=== PATIENT | female | born 1950 | race Caucasian/White ===

== ENCOUNTER 2020-02-27 17:29 | Emergency (ER) | payer MEDICARE, SELFPAY ==
[2020-02-27 17:57] VITALS: BP 164/103; PULSE 105; RESP 18; TEMP 37.1; O2SAT 100; BMI 27.4
--- NOTE | 2020-02-27 18:16 | XR_ITS ---
EXAMINATION: 1. RADIOGRAPHS LEFT HIP 2. RADIOGRAPHS LEFT FEMUR 3. RADIOGRAPHS LEFT TIBIA/FIBULA CLINICAL INFORMATION: Fall COMPARISON: None TECHNIQUE: 2 views of the left hip (including frontal pelvis), 2 views of the left femur and 2 views of the left tibia/fibular were obtained. FINDINGS: Pelvic ring is intact. Sacroiliac joints are symmetric. Vascular calcifications of the pelvis are noted. Unremarkable limited imaging of the right hip. No fracture of the left femur. Left femoral head is well-seated within the acetabulum. There is mild narrowing of the left femoral acetabular joint space with a small osteophyte along the superolateral acetabular margin. There are moderate degenerative changes of the left knee. A tiny suprapatellar joint effusion is suspected. There are are prominent tricompartmental osteophytes in addition to mild chondrocalcinosis. Cannot exclude a subtle nondisplaced fracture of the lateral tibial plateau although I suspect this cortical irregularity likely represents degenerative changes. The left ankle is grossly unremarkable without gross left ankle joint effusion. XR/XR tibia fibula LT 2V IMPRESSION: 1. Subtle cortical irregularity along the lateral tibial plateau. I suspect this represents degenerative changes, however, a subtle nondisplaced fracture is not excluded. Correlation with point tenderness recommended. If clinical concern for fracture, dedicated knee radiographs can be obtained. 2. Mild degenerative changes of the left hip without fracture or dislocation.
--- NOTE | 2020-02-27 18:16 | XR_ITS ---
EXAMINATION: 1. RADIOGRAPHS LEFT HIP 2. RADIOGRAPHS LEFT FEMUR 3. RADIOGRAPHS LEFT TIBIA/FIBULA CLINICAL INFORMATION: Fall COMPARISON: None TECHNIQUE: 2 views of the left hip (including frontal pelvis), 2 views of the left femur and 2 views of the left tibia/fibular were obtained. FINDINGS: Pelvic ring is intact. Sacroiliac joints are symmetric. Vascular calcifications of the pelvis are noted. Unremarkable limited imaging of the right hip. No fracture of the left femur. Left femoral head is well-seated within the acetabulum. There is mild narrowing of the left femoral acetabular joint space with a small osteophyte along the superolateral acetabular margin. There are moderate degenerative changes of the left knee. A tiny suprapatellar joint effusion is suspected. There are are prominent tricompartmental osteophytes in addition to mild chondrocalcinosis. Cannot exclude a subtle nondisplaced fracture of the lateral tibial plateau although I suspect this cortical irregularity likely represents degenerative changes. The left ankle is grossly unremarkable without gross left ankle joint effusion. XR/XR hip LT w PEL1V IMPRESSION: 1. Subtle cortical irregularity along the lateral tibial plateau. I suspect this represents degenerative changes, however, a subtle nondisplaced fracture is not excluded. Correlation with point tenderness recommended. If clinical concern for fracture, dedicated knee radiographs can be obtained. 2. Mild degenerative changes of the left hip without fracture or dislocation.
[2020-02-27] MEDS: Ibuprofen 800 MG TABLET PO (20:18)
--- NOTE | 2020-02-27 20:19 | PC.NURSE ---
ONLY 1 DOSE OF 800 MG IBUPROFEN GIVEN DUPILATION ORDER
[2020-02-27 20:44] VITALS: BP 154/69; PULSE 99; RESP 18; TEMP 36.9; O2SAT 99
--- NOTE | 2020-02-27 20:51 | XR_ITS ---
EXAMINATION: XR KNEE, LEFT CLINICAL INFORMATION: Question fracture seen on previous radiographs. COMPARISON: Femur and tib-fib films earlier today. TECHNIQUE: Four views of the left knee. FINDINGS: Degenerative changes are noted in all 3 compartments with narrowing of the medial compartment with tibial and femoral condyle osteophytes. Chondrocalcinosis is present with calcification in both menisci. Laterally, the area of cortical irregularity is seen but this appears to represent osteophytes and subchondral cyst rather than a fracture. The patellofemoral compartment is markedly narrowed and there are osteophytes. No joint effusion is seen. XR/XR knee LT 3V IMPRESSION: Tricompartmental degenerative changes. No fracture seen.
--- NOTE | 2020-02-27 21:47 | ED.LOWEXIN ---
HPI - Extremity Injury (Lower) General Chief Complaint: Extremity Injury, Lower Stated Complaint: leg pain Time Seen by Provider: 02/27/20 20:04 Source: patient Mode of arrival: ambulatory Limitations: no limitations History of Present Illness HPI Narrative: Patient presents to left hip pain for the past 3 weeks. Patient states she fell 3 days ago on left hip and has not been evaluated by ever since. Patient states pain is worse on ambulation. Patient denies hitting head or loss of consciousness. Related Data Previous Rx's Medication Instructions Recorded naproxen 500 mg PO BID PRN #20 tab 02/27/20 Allergies Allergy/AdvReac Type Severity Reaction Status Date / Time No Known Allergies Allergy Verified 02/27/20 18:06 Review of Systems Review of Systems: Yes all other systems are reviewed and are negative Constitutional: Constitutional: Reports as per HPI and Reports no additional constitutional complaints Eyes: Eyes: Reports as per HPI and Reports no additional eye complaints ENT: Reports system reviewed and no additional complaints, except as documented and Reports as per HPI Cardiovascular: Cardiovascular: Reports as per HPI and Reports no additional cardiovascular complaints Respiratory: Respiratory: Reports as per HPI and Reports no additional respiratory complaints Gastrointestinal: Gastrointestinal: Reports as per HPI and Reports no additional gastrointestinal complaints Musculoskeletal: Musculoskeletal: Reports no additional musculoskeletal complaints and Reports as per HPI Comments: positive left hip and posterior thigh pain after falling 2 weeks ago. Neurologic: Reports system reviewed and no additional complaints, except as documented and Reports as per HPI Psychiatric: Psychiatric: Reports no additional psychiatric complaints and Reports as per HPI [facility] Past Medical History Medical History (Updated 02/27/20 @ 21:52 by RASHID Hearn) No known health problems Social History Social History Alcohol intake: current Alcohol intake frequency: 0-2 drinks per day Alcohol type: beer and wine Smoked in Last 30 Days: No Use of substances other than those prescribed or required for medical reasons: No Any prior treatment program specific to substance use: No Advance Directives: No Advance Directives Information Provided: Yes Physical Exam Vital Signs: Vital Signs: Vital Signs Temp Pulse Resp BP Pulse Ox 02/27/20 20:44 98.4 F 99 18 154/69 H 99 02/27/20 17:57 98.7 F 105 H 18 164/103 H 100 Body Mass Index 27.4 Const: General: cooperative, healthy appearing, comfortable, no acute distress and well developed Orientation/consciousness: patient oriented x3 HENMT: Head: Yes normal to inspection, Yes No palpable skull fracture present, Yes atraumatic, No abrasion, No Riggins's sign, No contusion, No laceration, No occipital foramen tenderness, No palpable skull fracture, No raccoon eyes, No scalp tenderness and No Temporal artery tenderness present Eyes: General: appearance normal, both eyes and all related structures Visual Vigil: normal visual vigil by confrontation Neck: Neck: Yes normal visual inspection, Yes full ROM, Yes no lymphadenopathy, Yes no meningeal signs, Yes trachea midline, No positive Brudzinski's sign, No positive Kernig's sign and No tender Chest: Chest palpation & inspection: normal inspection of the chest, normal palpation of entire chest wall and no localized rib tenderness Resp: Effort & Inspection: normal respiratory effort and able to speak in complete sentences GI: Inspection: Yes normal to inspection and No abdominal wall ecchymosis Palpation (GI): Soft to palpation, not firm, nontender, no guarding and not rigid : General: No CVA tenderness and Yes no CVA tenderness Back/Spine/Pelvis: Back: no CVA tenderness, No CVA tenderness and No back tenderness Skin: General skin exam: no rashes or lesions noted Neuro: General: patient oriented x3, gait normal, no meningeal signs and CN's II-XI intact bilaterally Cranial nerves: Yes CN's II-XII intact bilaterally Extrem: Other: Positive for left hip tenderness on palpation. Negative for any internal/external rotation of left lower extremity. Negative for any anterior tenderness, redness, or swelling of the thigh and lower extremity. Mild left posterior thigh tenderness on palpation. Right lower extremity normal. motor, neuro, vascular exam of all extremities are intact Course Course Course Narrative: Patient will be sent for hip femur knee and leg x-ray to rule out any fractures. Reevaluation(s) Reevaluation #1: All images came back negative and Patient feels better after receiving Motrin. physical exam does not indicate fracture, DVT, cellulitis, or compartment syndrome. Xray shows arthritis. Time: 21:50 MDM - Extremity Injury (Lower) MDM Narrative Medical decision making narrative: hip contusion Discharge Plan Discharge Clinical Impression: Contusion of left hip region Patient Disposition: Home, Self-Care Instructions: Hip Contusion (ED), Arthritis (ED) Additional Instructions: return to ED immediately for swelling of lower extremity, redness, bluish discoloration, fever, chills, chest pain, inability to walk, shortness of breath, or any other concerning symptoms. Prescriptions: New naproxen 500 mg tablet 500 mg PO BID PRN (Reason: pain) Qty: 20 RF: 0 Interventions: ED Discharge Assessment Last Done: 02/27/20 22:00 Discharge Date/Time: 02/27/20 22:03 Print Language: [place]
--- NOTE | 2020-02-27 22:01 | PC.NURSE ---
PT REQUESTED CRUTCHES TO AMBULATE TRIAL PT WITH CRUTCHES AND PT WAS UNABLE TO HANDLE CRUTCHES. PT AMBULATORY WITH STEADY GAIT NO CRUTCHES NEEDED.
== END 2020-02-27 22:03 | disposition home or self-care (01) ==
PROVIDERS: Emergency Provider Internal Medicine
DX: S70.02XA Contusion of left hip, initial encounter (principal); M25.552 Pain in left hip; M25.562 Pain in left knee; W01.0XXA Fall on same level from slipping, tripping and stumbling without subsequent striking against object, initial encounter; Y93.9 Activity, unspecified; Y92.9 Unspecified place or not applicable; Y99.9 Unspecified external cause status
CPT/HCPCS: 73502; 73552; 73562; 73590; 99283; 99284

== ENCOUNTER 2020-03-03 18:00 | Inpatient (IN) | payer MEDICARE, SELFPAY ==
--- NOTE | 2020-03-03 19:49 | ED.LOWEXIN ---
HPI - Extremity Injury (Lower) General Chief Complaint: Extremity Injury, Lower Stated Complaint: Leg pain Time Seen by Provider: 03/03/20 19:49 Related Data Previous Rx's Medication Instructions Recorded naproxen 500 mg PO BID PRN #20 tab 02/27/20 cefuroxime axetil 500 mg PO Q12H #24 tab 03/06/20 folic acid 1 mg PO DAILY #30 tab 03/06/20 thiamine HCl (vitamin B1) 100 mg PO DAILY #30 tab 03/06/20 Allergies Allergy/AdvReac Type Severity Reaction Status Date / Time No Known Allergies Allergy Verified 02/27/20 18:06 [facility] Past Medical History Medical History (Updated 03/05/20 @ 15:13 by Johnny Carlisle MD) Alcohol abuse No known health problems Social History Social History (Updated 03/04/20 @ 13:37 by Coretta Diego NP) Household Members: Family Housing: House Do you presently have visiting nurse or other home services: No Alcohol intake: former Smoking Status: Smoker, status unknown Smoked in Last 30 Days: No Use of substances other than those prescribed or required for medical reasons: No Currently Displaying Signs/Symptoms of Drug Intoxication Withdrawal: No Have you been hit, kicked, punched, or otherwise hurt by someone within the past year? If so, by whom?: No Do you feel safe in your current relationship?: No Is there a partner from a previous relationship who is making you feel unsafe now?: No Are you made to feel afraid or neglected: No Advance Directives: No Advance Directives Information Provided: Yes Do you have thoughts of harming others: None Do you have a plan to hurt others: No Plan Recently lost weight without trying: No service: No Physical Exam Vital Signs: Vital Signs: Last Vital Signs Temp 98.7 F 03/06/20 10:59 Pulse 95 03/06/20 10:59 Resp 18 03/06/20 10:59 BP 115/61 03/06/20 10:59 Pulse Ox 97 03/06/20 10:59 Body Mass Index 29.2 MDM - Extremity Injury (Lower) Lab Data Result diagrams: 03/06/20 05:26 03/06/20 05:26 Labs: Lab Results 03/03/20 03/03/20 03/03/20 Range/Units 20:39 20:39 20:39 WBC 7.1 (4.8-10.8) X10*3/uL RBC 2.99 L (4.20-5.50) X10*6/uL Hgb 9.9 L (12.0-16.0) g/dl Hct 29.5 L (37-47) % MCV 98.7 H (80-98) fL MCH 33.1 H (27.0-33.0) pg MCHC 33.6 (31.0-35.0) g/dl RDW 13.4 (11.0-16.0) % Plt Count 169 (160-400) X10*3/uL MPV 9.3 L (9.4-12.3) fL Immature Gran % (Auto) 0.6 H (0.0-0.4) % Neut % (Auto) 78.3 H (45-73) % Lymph % (Auto) 11.2 L (20-40) % [place] % (Auto) 9.5 (2-11) % Eos % (Auto) 0.3 (0-4) % Baso % (Auto) 0.1 (0-2) % Lymph # (Auto) 0.8 L (1.2-4.9) X10*3/uL [place] # (Auto) 0.7 (0.1-1.2) X10*3/uL Eos # (Auto) 0.0 (0.0-0.4) X10*3/uL Baso # (Auto) 0.0 (0.0-0.2) X10*3/uL Abs Immat Gran (auto) 0.04 H (0.00-0.03) X10*3/uL Absolute Neuts (auto) 5.5 (2.0-8.3) X10*3/uL Absolute Nucleated RBC 0.000 (0.0-0.012) X10*3/uL Nucleated RBC % (auto) 0.0 (0.0-0.2) /100WBC Hold Blue Top Sodium 133 L (135-145) mmol/L Potassium 3.6 (3.3-5.1) mmol/l Chloride 94 L (96-108) mmol/L Carbon Dioxide 26 (22-29) mmol/L Anion Gap 17 (12-20) BUN 22 H (9-16) mg/dL Creatinine 0.79 (0.5-1.4) mg/dL Estim Creat Clear Calc 66.9 Estimated GFR > 60 POC Glucose (60-115) mg/dL Random Glucose 115 (60-115) mg/dL Lactic Acid (0.5-2.0) mmol/L Calcium 8.9 (8.4-10.2) mg/dL Total Bilirubin 3.7 H (0.0-1.0) mg/dL Direct Bilirubin 2.9 H (0.0-0.5) mg/dL AST 42 H (5-31) U/L ALT 19 (0-31) U/L Alkaline Phosphatase 274 H (39-117) U/L Ammonia (13-55) umol/L Troponin I High Sens (<3.5-17.0) ng/L Total Protein 7.7 (6.5-8.0) g/dL Albumin 3.7 (3.5-5.0) g/dL Urine Color Urine Appearance Urine pH (5.0-8.0) Ur Specific [place] (1.005-1.025) Urine Protein (NEG-TRACE) MG/DL Urine Glucose (UA) (NEG) MG/DL Urine Ketones (NEG) MG/DL Urine Blood (NEG) Urine Nitrite (NEG) Ur Leukocyte Esterase (NEG) Urine RBC (0) /HPF Urine WBC (0-4) /HPF Ur Squamous Epith Cells /LPF Urine Bacteria /LPF Urine Opiates Screen (Not Detect) Ur Barbiturates Screen (Not Detect) Ur Phencyclidine Scrn (Not Detect) Ur Amphetamines Screen (Not Detect) U Benzodiazepines Scrn (Not Detect) Urine Cocaine Screen (Not Detect) U Marijuana (THC) Screen (Not Detect) Ethyl Alcohol < 10 mg/dL 03/03/20 03/03/20 03/03/20 Range/Units 20:39 20:39 21:05 WBC (4.8-10.8) X10*3/uL RBC (4.20-5.50) X10*6/uL Hgb (12.0-16.0) g/dl Hct (37-47) % MCV (80-98) fL MCH (27.0-33.0) pg MCHC (31.0-35.0) g/dl RDW (11.0-16.0) % Plt Count (160-400) X10*3/uL MPV (9.4-12.3) fL Immature Gran % (Auto) (0.0-0.4) % Neut % (Auto) (45-73) % Lymph % (Auto) (20-40) % [place] % (Auto) (2-11) % Eos % (Auto) (0-4) % Baso % (Auto) (0-2) % Lymph # (Auto) (1.2-4.9) X10*3/uL [place] # (Auto) (0.1-1.2) X10*3/uL Eos # (Auto) (0.0-0.4) X10*3/uL Baso # (Auto) (0.0-0.2) X10*3/uL Abs Immat Gran (auto) (0.00-0.03) X10*3/uL Absolute Neuts (auto) (2.0-8.3) X10*3/uL Absolute Nucleated RBC (0.0-0.012) X10*3/uL Nucleated RBC % (auto) (0.0-0.2) /100WBC Hold Blue Top SEE NOTE Sodium (135-145) mmol/L Potassium (3.3-5.1) mmol/l Chloride (96-108) mmol/L Carbon Dioxide (22-29) mmol/L Anion Gap (12-20) BUN (9-16) mg/dL Creatinine (0.5-1.4) mg/dL Estim Creat Clear Calc Estimated GFR POC Glucose 112 (60-115) mg/dL Random Glucose (60-115) mg/dL Lactic Acid (0.5-2.0) mmol/L Calcium (8.4-10.2) mg/dL Total Bilirubin (0.0-1.0) mg/dL Direct Bilirubin (0.0-0.5) mg/dL AST (5-31) U/L ALT (0-31) U/L Alkaline Phosphatase (39-117) U/L Ammonia (13-55) umol/L Troponin I High Sens < 3.5 (<3.5-17.0) ng/L Total Protein (6.5-8.0) g/dL Albumin (3.5-5.0) g/dL Urine Color Urine Appearance Urine pH (5.0-8.0) Ur Specific [place] (1.005-1.025) Urine Protein (NEG-TRACE) MG/DL Urine Glucose (UA) (NEG) MG/DL Urine Ketones (NEG) MG/DL Urine Blood (NEG) Urine Nitrite (NEG) Ur Leukocyte Esterase (NEG) Urine RBC (0) /HPF Urine WBC (0-4) /HPF Ur Squamous Epith Cells /LPF Urine Bacteria /LPF Urine Opiates Screen (Not Detect) Ur Barbiturates Screen (Not Detect) Ur Phencyclidine Scrn (Not Detect) Ur Amphetamines Screen (Not Detect) U Benzodiazepines Scrn (Not Detect) Urine Cocaine Screen (Not Detect) U Marijuana (THC) Screen (Not Detect) Ethyl Alcohol mg/dL 03/03/20 03/03/20 03/03/20 Range/Units 21:52 21:52 21:52 WBC (4.8-10.8) X10*3/uL RBC (4.20-5.50) X10*6/uL Hgb (12.0-16.0) g/dl Hct (37-47) % MCV (80-98) fL MCH (27.0-33.0) pg MCHC (31.0-35.0) g/dl RDW (11.0-16.0) % Plt Count (160-400) X10*3/uL MPV (9.4-12.3) fL Immature Gran % (Auto) (0.0-0.4) % Neut % (Auto) (45-73) % Lymph % (Auto) (20-40) % [place] % (Auto) (2-11) % Eos % (Auto) (0-4) % Baso % (Auto) (0-2) % Lymph # (Auto) (1.2-4.9) X10*3/uL [place] # (Auto) (0.1-1.2) X10*3/uL Eos # (Auto) (0.0-0.4) X10*3/uL Baso # (Auto) (0.0-0.2) X10*3/uL Abs Immat Gran (auto) (0.00-0.03) X10*3/uL Absolute Neuts (auto) (2.0-8.3) X10*3/uL Absolute Nucleated RBC (0.0-0.012) X10*3/uL Nucleated RBC % (auto) (0.0-0.2) /100WBC Hold Blue Top Sodium (135-145) mmol/L Potassium (3.3-5.1) mmol/l Chloride (96-108) mmol/L Carbon Dioxide (22-29) mmol/L Anion Gap (12-20) BUN (9-16) mg/dL Creatinine (0.5-1.4) mg/dL Estim Creat Clear Calc Estimated GFR POC Glucose (60-115) mg/dL Random Glucose (60-115) mg/dL Lactic Acid (0.5-2.0) mmol/L Calcium (8.4-10.2) mg/dL Total Bilirubin (0.0-1.0) mg/dL Direct Bilirubin (0.0-0.5) mg/dL AST (5-31) U/L ALT (0-31) U/L Alkaline Phosphatase (39-117) U/L Ammonia 36 (13-55) umol/L Troponin I High Sens (<3.5-17.0) ng/L Total Protein (6.5-8.0) g/dL Albumin (3.5-5.0) g/dL Urine Color FABIEN Urine Appearance CLOUDY Urine pH 6.5 (5.0-8.0) Ur Specific [place] 1.025 (1.005-1.025) Urine Protein 3+ H (NEG-TRACE) MG/DL Urine Glucose (UA) NEG (NEG) MG/DL Urine Ketones 15 (NEG) MG/DL Urine Blood 3+ H (NEG) Urine Nitrite POS H (NEG) Ur Leukocyte Esterase 3+ H (NEG) Urine RBC 30-49 H (0) /HPF Urine WBC TNTC H (0-4) /HPF Ur Squamous Epith Cells NONE /LPF Urine Bacteria 4+ /LPF Urine Opiates Screen Not Detected (Not Detect) Ur Barbiturates Screen Not Detected (Not Detect) Ur Phencyclidine Scrn Not Detected (Not Detect) Ur Amphetamines Screen Not Detected (Not Detect) U Benzodiazepines Scrn Not Detected (Not Detect) Urine Cocaine Screen Not Detected (Not Detect) U Marijuana (THC) Screen Not Detected (Not Detect) Ethyl Alcohol mg/dL 03/03/20 Range/Units 23:02 WBC (4.8-10.8) X10*3/uL RBC (4.20-5.50) X10*6/uL Hgb (12.0-16.0) g/dl Hct (37-47) % MCV (80-98) fL MCH (27.0-33.0) pg MCHC (31.0-35.0) g/dl RDW (11.0-16.0) % Plt Count (160-400) X10*3/uL MPV (9.4-12.3) fL Immature Gran % (Auto) (0.0-0.4) % Neut % (Auto) (45-73) % Lymph % (Auto) (20-40) % [place] % (Auto) (2-11) % Eos % (Auto) (0-4) % Baso % (Auto) (0-2) % Lymph # (Auto) (1.2-4.9) X10*3/uL [place] # (Auto) (0.1-1.2) X10*3/uL Eos # (Auto) (0.0-0.4) X10*3/uL Baso # (Auto) (0.0-0.2) X10*3/uL Abs Immat Gran (auto) (0.00-0.03) X10*3/uL Absolute Neuts (auto) (2.0-8.3) X10*3/uL Absolute Nucleated RBC (0.0-0.012) X10*3/uL Nucleated RBC % (auto) (0.0-0.2) /100WBC Hold Blue Top Sodium (135-145) mmol/L Potassium (3.3-5.1) mmol/l Chloride (96-108) mmol/L Carbon Dioxide (22-29) mmol/L Anion Gap (12-20) BUN (9-16) mg/dL Creatinine (0.5-1.4) mg/dL Estim Creat Clear Calc Estimated GFR POC Glucose (60-115) mg/dL Random Glucose (60-115) mg/dL Lactic Acid 2.3 H* (0.5-2.0) mmol/L Calcium (8.4-10.2) mg/dL Total Bilirubin (0.0-1.0) mg/dL Direct Bilirubin (0.0-0.5) mg/dL AST (5-31) U/L ALT (0-31) U/L Alkaline Phosphatase (39-117) U/L Ammonia (13-55) umol/L Troponin I High Sens (<3.5-17.0) ng/L Total Protein (6.5-8.0) g/dL Albumin (3.5-5.0) g/dL Urine Color Urine Appearance Urine pH (5.0-8.0) Ur Specific [place] (1.005-1.025) Urine Protein (NEG-TRACE) MG/DL Urine Glucose (UA) (NEG) MG/DL Urine Ketones (NEG) MG/DL Urine Blood (NEG) Urine Nitrite (NEG) Ur Leukocyte Esterase (NEG) Urine RBC (0) /HPF Urine WBC (0-4) /HPF Ur Squamous Epith Cells /LPF Urine Bacteria /LPF Urine Opiates Screen (Not Detect) Ur Barbiturates Screen (Not Detect) Ur Phencyclidine Scrn (Not Detect) Ur Amphetamines Screen (Not Detect) U Benzodiazepines Scrn (Not Detect) Urine Cocaine Screen (Not Detect) U Marijuana (THC) Screen (Not Detect) Ethyl Alcohol mg/dL Discharge Plan Discharge Clinical Impression: Acute UTI, Alcohol withdrawal delirium Patient Disposition: Admitted As Inpatient Discharge Date/Time: 03/04/20 14:41
[2020-03-03 19:55] VITALS: BP 130/71; PULSE 125; RESP 16; TEMP 36.9; O2SAT 97; BMI 29.2
--- NOTE | 2020-03-03 20:10 | PC.NURSE ---
PT STATES SHE USED TO DRINK 5 GLASSES OF WINE A DAY BUT SHE QUIT 6 WEEKS AGO. PT HAS VISIBLE HAND TREMOR AND HIGH HEART RATE. PT SISTER SAID SHE WAS HALLUCINATING AT HOME.
--- NOTE | 2020-03-03 20:12 | PC.NURSE ---
PT SISTER PHONE NUMBER [phone]
[2020-03-03 20:47] LABS: MANUAL DIFF FLAG NO
[2020-03-03 20:49] LABS: Basophils Percent Auto 0.1 % (0-2); Eosinophils Percent Auto 0.3 % (0-4); Hematocrit 29.5 % (37-47); Hemoglobin 9.9 g/dl (12.0-16.0); Imm Gran Abs Auto 0.04 X10*3/uL (0.00-0.03); Imm Gran Pct Auto 0.6 % (0.0-0.4); Lymphocytes Absolute Auto 0.8 X10*3/uL (1.2-4.9); Lymphocytes Percent Auto 11.2 % (20-40); Mean Corpuscular HGB Conc 33.6 g/dl (31.0-35.0); Mean Corpuscular Hemoglobin 33.1 pg (27.0-33.0); Mean Corpuscular Volume 98.7 fL (80-98); Mean Platelet Volume 9.3 fL (9.4-12.3); Monocytes Absolute Auto 0.7 X10*3/uL (0.1-1.2); Monocytes Percent Auto 9.5 % (2-11); Neutrophils Absolute Auto 5.5 X10*3/uL (2.0-8.3); Neutrophils Percent Auto 78.3 % (45-73); Platelet Count 169 X10*3/uL (160-400); Red Blood Count 2.99 X10*6/uL (4.20-5.50); Red Cell Distribution Width 13.4 % (11.0-16.0); White Blood Count 7.1 X10*3/uL (4.8-10.8)
--- NOTE | 2020-03-03 21:06 | PC.NURSE ---
sister manda [phone]
[2020-03-03 21:09] LABS: Glucose, Whole Blood 112 mg/dL (60-115)
[2020-03-03 21:10] LABS: Ethanol < 10 mg/dL
[2020-03-03 21:11] LABS: Anion Gap 17 (12-20); Blood Urea Nitrogen 22 mg/dL (9-16); Calcium 8.9 mg/dL (8.4-10.2); Carbon Dioxide 26 mmol/L (22-29); Chloride 94 mmol/L (96-108); Creatinine Clr Calc Pharmacy 66.9; Estimated Glomerular Filt Rate > 60; Glucose Random 115 mg/dL (60-115); Potassium 3.6 mmol/l (3.3-5.1); Sodium 133 mmol/L (135-145)
--- NOTE | 2020-03-03 21:13 | CT_ITS ---
EXAMINATION: CT OF THE HEAD AND CERVICAL SPINE WITHOUT CONTRAST CLINICAL INFORMATION: Possible fall COMPARISON: None. TECHNIQUE: Contiguous axial imaging was performed from the vertex to the thoracic inlet, through the head and cervical spine, without intravenous administration of contrast. Coronal and sagittal reformatted images through the cervical spine were obtained on the technologists workstation. Total exam dose-length product: 591+302 mGy-cm This CT examination was performed using dose optimization techniques as appropriate, variously including the following: *Automated exposure control *Adjustment of mA and/or kV according to patient size (this includes techniques or standardized protocols for targeted exams where dose is matched to indication/reason for exam; i.e. extremities or head) *Use of iterative reconstruction technique FINDINGS: Head: No acute intracranial hemorrhage. No extra-axial fluid collection. Flores-white matter differentiation is preserved without evidence of acute large vessel territory ischemia. Symmetric, concordant ventricles and sulci; no hydrocephalus. No mass effect or midline shift. There is subtle low density in the posterior limb of the left internal capsule extending to the left cerebral peduncle with asymmetric CSF density in the left kip. The osseous structures and soft tissues are normal. No acute sinusitis. Cervical spine: Normal pre-vertebral soft tissues. No fracture seen. Multilevel degenerative disc disease is seen with loss of disc height, endplate sclerosis, and anterior osteophytosis C3-C4 through C6-C7. Posterior disc osteophyte complexes are seen at several levels most notably C6-C7. There is multilevel facet arthropathy. Thyroid homogeneous with no nodules seen. Lung apices are clear. No cervical lymphadenopathy, mass, or fluid collection. CT/CT cervical spine wo con IMPRESSION: No acute intracranial pathology. There is subtle low density in the posterior limb of left internal capsule extending to the left cerebral peduncle with low density in the left kip suggesting remote prior ischemia and [place]ian degeneration. Consider MRI for further evaluation as clinically indicated. No acute osseous abnormality of the cervical spine. Multilevel degenerative disc disease and facet arthropathy.
--- NOTE | 2020-03-03 21:17 | ECG_ITS ---
Test Reason : ALTERED Blood Pressure : / mmHG Vent. Rate : 119 BPM Atrial Rate : 119 BPM P-R Int : 108 ms QRS Dur : 078 ms QT Int : 336 ms P-R-T Axes : 027 -19 -02 degrees QTc Int : 472 ms Poor data quality Sinus tachycardia with short [place] Minimal voltage criteria for LVH, may be normal variant Inferior infarct , age undetermined Nonspecific ST abnormality Abnormal ECG No previous ECGs available Referred By: yTe Choudhury Electronically Signed By:TEODORO SIFUENTES MD
[2020-03-03 21:20] LABS: Troponin-I High Sensitivity < 3.5 ng/L (<3.5-17.0)
--- NOTE | 2020-03-03 21:27 | ED.GENADULT ---
HPI - General Adult General Chief complaint: Extremity Injury, Lower Stated complaint: Leg pain Time Seen by Provider: 03/03/20 19:49 Source: patient Mode of arrival: ambulatory Limitations: no limitations History of Present Illness HPI narrative: patient presents to the ED for altered mental status patient's mental status waxes and wanes. Patient cannot give a good history. Related Data Previous Rx's Medication Instructions Recorded naproxen 500 mg PO BID PRN #20 tab 02/27/20 Allergies Allergy/AdvReac Type Severity Reaction Status Date / Time No Known Allergies Allergy Verified 02/27/20 18:06 Review of Systems Review of Systems: Yes Unobtainable due to mental status ( Altered mental state) Neurologic: Reports confusion Psychiatric: Psychiatric: Reports confusion [facility] Past Medical History Medical History (Updated 03/04/20 @ 02:03 by RASHID Hearn) No known health problems Social History Social History Alcohol intake: former Smoked in Last 30 Days: No Use of substances other than those prescribed or required for medical reasons: No Advance Directives: No Advance Directives Information Provided: Yes Physical Exam Vital Signs: Vital Signs: Last Vital Signs Temp 100.0 F 03/04/20 01:26 Pulse 128 H 03/04/20 01:26 Resp 20 03/04/20 01:26 BP 148/52 H 03/04/20 01:26 Pulse Ox 97 03/04/20 01:26 Body Mass Index 29.2 Const: Other: patient seen preoccupied mentally. Patient wax and wanes General: healthy appearing, comfortable, awake, Physically active and confusion Orientation/consciousness: confusion HENMT: Head: Yes normal to inspection and Yes No palpable skull fracture present Eyes: General: appearance normal, both eyes and all related structures Visual Burton: normal visual burton by confrontation Neck: Neck: Yes normal visual inspection, Yes full ROM, Yes no lymphadenopathy and Yes no meningeal signs Chest: Chest palpation & inspection: normal inspection of the chest, normal palpation of entire chest wall and no localized rib tenderness Resp: Effort & Inspection: normal respiratory effort and able to speak in complete sentences Cardio: Jugular venous distension: no JVD Heart sounds: S1 normal heart sound present and S2 normal heart sound present GI: Inspection: Yes normal to inspection and No abdominal wall ecchymosis Palpation (GI): Firmness to palpation present (GI), Tenderness to palpation present (GI) and Guarding due to palpation present (GI) : General: No CVA tenderness and Yes no CVA tenderness Back/Spine/Pelvis: Back: no CVA tenderness, No CVA tenderness and No back tenderness Neuro: Other: patient mental status waxed and wane. Sometimes patient alert orient x3 other times patient is totally confused. General: no meningeal signs and confusion Course Course Course Narrative: spoke with patient's sister, Janett, who states patient has been hallucinating for the past 4 days and has become worse. Janett states patient also is alcoholic and stopped drinking alcohol for the past 5 days. Janett states states also patient had head trauma a month ago and does not know of this contributing to her altered mental status. Reevaluation(s) Reevaluation #1: Patient will have basic labs including ammonia, EKG, troponin, head CT, C-spine, UA, alcohol level. Differential is finding source of infection versus delirium tremors. Patient does have mild tremors and is tachycardic. Patient given Ativan. Time: 20:39 Reevaluation #2: patient UA shows positive for UTI. Patient will be started on ceftriaxone. Lactic and blood culture will be sent. Time: 21:42 Reevaluation #3: lactic acid came back positive. Patient already given sepsis fluid. Patient evaluated by hospitalist, Dr. Samaniego, who states she agrees patient is having delirium tremors due to alcohol withdrawal with UTI. She recommends phenobarbital protocol. She does not recommend patient go to ICU. Patient presently is maintaining her airway and neuro exam negative for any focal deficits. Time: 01:00 Additional Reevaluation(s): patient given phenobarbital 1st dose. Medical Decision Making MDM Narrative Medical decision making narrative: Delirium tremors. UTI. Lab Data Result diagrams: 03/03/20 20:39 03/03/20 20:39 Labs: Lab Results 03/03/20 03/03/20 03/03/20 Range/Units 20:39 20:39 20:39 WBC 7.1 (4.8-10.8) X10*3/uL RBC 2.99 L (4.20-5.50) X10*6/uL Hgb 9.9 L (12.0-16.0) g/dl Hct 29.5 L (37-47) % MCV 98.7 H (80-98) fL MCH 33.1 H (27.0-33.0) pg MCHC 33.6 (31.0-35.0) g/dl RDW 13.4 (11.0-16.0) % Plt Count 169 (160-400) X10*3/uL MPV 9.3 L (9.4-12.3) fL Immature Gran % (Auto) 0.6 H (0.0-0.4) % Neut % (Auto) 78.3 H (45-73) % Lymph % (Auto) 11.2 L (20-40) % [place] % (Auto) 9.5 (2-11) % Eos % (Auto) 0.3 (0-4) % Baso % (Auto) 0.1 (0-2) % Lymph # (Auto) 0.8 L (1.2-4.9) X10*3/uL [place] # (Auto) 0.7 (0.1-1.2) X10*3/uL Eos # (Auto) 0.0 (0.0-0.4) X10*3/uL Baso # (Auto) 0.0 (0.0-0.2) X10*3/uL Abs Immat Gran (auto) 0.04 H (0.00-0.03) X10*3/uL Absolute Neuts (auto) 5.5 (2.0-8.3) X10*3/uL Absolute Nucleated RBC 0.000 (0.0-0.012) X10*3/uL Nucleated RBC % (auto) 0.0 (0.0-0.2) /100WBC Hold Blue Top Sodium 133 L (135-145) mmol/L Potassium 3.6 (3.3-5.1) mmol/l Chloride 94 L (96-108) mmol/L Carbon Dioxide 26 (22-29) mmol/L Anion Gap 17 (12-20) BUN 22 H (9-16) mg/dL Creatinine 0.79 (0.5-1.4) mg/dL Estim Creat Clear Calc 66.9 Estimated GFR > 60 POC Glucose (60-115) mg/dL Random Glucose 115 (60-115) mg/dL Lactic Acid (0.5-2.0) mmol/L Calcium 8.9 (8.4-10.2) mg/dL Total Bilirubin 3.7 H (0.0-1.0) mg/dL Direct Bilirubin 2.9 H (0.0-0.5) mg/dL AST 42 H (5-31) U/L ALT 19 (0-31) U/L Alkaline Phosphatase 274 H (39-117) U/L Ammonia (13-55) umol/L Troponin I High Sens (<3.5-17.0) ng/L Total Protein 7.7 (6.5-8.0) g/dL Albumin 3.7 (3.5-5.0) g/dL Urine Color Urine Appearance Urine pH (5.0-8.0) Ur Specific [place] (1.005-1.025) Urine Protein (NEG-TRACE) MG/DL Urine Glucose (UA) (NEG) MG/DL Urine Ketones (NEG) MG/DL Urine Blood (NEG) Urine Nitrite (NEG) Ur Leukocyte Esterase (NEG) Urine RBC (0) /HPF Urine WBC (0-4) /HPF Ur Squamous Epith Cells /LPF Urine Bacteria /LPF Urine Opiates Screen (Not Detect) Ur Barbiturates Screen (Not Detect) Ur Phencyclidine Scrn (Not Detect) Ur Amphetamines Screen (Not Detect) U Benzodiazepines Scrn (Not Detect) Urine Cocaine Screen (Not Detect) U Marijuana (THC) Screen (Not Detect) Ethyl Alcohol < 10 mg/dL 03/03/20 03/03/20 03/03/20 Range/Units 20:39 20:39 21:05 WBC (4.8-10.8) X10*3/uL RBC (4.20-5.50) X10*6/uL Hgb (12.0-16.0) g/dl Hct (37-47) % MCV (80-98) fL MCH (27.0-33.0) pg MCHC (31.0-35.0) g/dl RDW (11.0-16.0) % Plt Count (160-400) X10*3/uL MPV (9.4-12.3) fL Immature Gran % (Auto) (0.0-0.4) % Neut % (Auto) (45-73) % Lymph % (Auto) (20-40) % [place] % (Auto) (2-11) % Eos % (Auto) (0-4) % Baso % (Auto) (0-2) % Lymph # (Auto) (1.2-4.9) X10*3/uL [place] # (Auto) (0.1-1.2) X10*3/uL Eos # (Auto) (0.0-0.4) X10*3/uL Baso # (Auto) (0.0-0.2) X10*3/uL Abs Immat Gran (auto) (0.00-0.03) X10*3/uL Absolute Neuts (auto) (2.0-8.3) X10*3/uL Absolute Nucleated RBC (0.0-0.012) X10*3/uL Nucleated RBC % (auto) (0.0-0.2) /100WBC Hold Blue Top SEE NOTE Sodium (135-145) mmol/L Potassium (3.3-5.1) mmol/l Chloride (96-108) mmol/L Carbon Dioxide (22-29) mmol/L Anion Gap (12-20) BUN (9-16) mg/dL Creatinine (0.5-1.4) mg/dL Estim Creat Clear Calc Estimated GFR POC Glucose 112 (60-115) mg/dL Random Glucose (60-115) mg/dL Lactic Acid (0.5-2.0) mmol/L Calcium (8.4-10.2) mg/dL Total Bilirubin (0.0-1.0) mg/dL Direct Bilirubin (0.0-0.5) mg/dL AST (5-31) U/L ALT (0-31) U/L Alkaline Phosphatase (39-117) U/L Ammonia (13-55) umol/L Troponin I High Sens < 3.5 (<3.5-17.0) ng/L Total Protein (6.5-8.0) g/dL Albumin (3.5-5.0) g/dL Urine Color Urine Appearance Urine pH (5.0-8.0) Ur Specific [place] (1.005-1.025) Urine Protein (NEG-TRACE) MG/DL Urine Glucose (UA) (NEG) MG/DL Urine Ketones (NEG) MG/DL Urine Blood (NEG) Urine Nitrite (NEG) Ur Leukocyte Esterase (NEG) Urine RBC (0) /HPF Urine WBC (0-4) /HPF Ur Squamous Epith Cells /LPF Urine Bacteria /LPF Urine Opiates Screen (Not Detect) Ur Barbiturates Screen (Not Detect) Ur Phencyclidine Scrn (Not Detect) Ur Amphetamines Screen (Not Detect) U Benzodiazepines Scrn (Not Detect) Urine Cocaine Screen (Not Detect) U Marijuana (THC) Screen (Not Detect) Ethyl Alcohol mg/dL 03/03/20 03/03/20 03/03/20 Range/Units 21:52 21:52 21:52 WBC (4.8-10.8) X10*3/uL RBC (4.20-5.50) X10*6/uL Hgb (12.0-16.0) g/dl Hct (37-47) % MCV (80-98) fL MCH (27.0-33.0) pg MCHC (31.0-35.0) g/dl RDW (11.0-16.0) % Plt Count (160-400) X10*3/uL MPV (9.4-12.3) fL Immature Gran % (Auto) (0.0-0.4) % Neut % (Auto) (45-73) % Lymph % (Auto) (20-40) % [place] % (Auto) (2-11) % Eos % (Auto) (0-4) % Baso % (Auto) (0-2) % Lymph # (Auto) (1.2-4.9) X10*3/uL [place] # (Auto) (0.1-1.2) X10*3/uL Eos # (Auto) (0.0-0.4) X10*3/uL Baso # (Auto) (0.0-0.2) X10*3/uL Abs Immat Gran (auto) (0.00-0.03) X10*3/uL Absolute Neuts (auto) (2.0-8.3) X10*3/uL Absolute Nucleated RBC (0.0-0.012) X10*3/uL Nucleated RBC % (auto) (0.0-0.2) /100WBC Hold Blue Top Sodium (135-145) mmol/L Potassium (3.3-5.1) mmol/l Chloride (96-108) mmol/L Carbon Dioxide (22-29) mmol/L Anion Gap (12-20) BUN (9-16) mg/dL Creatinine (0.5-1.4) mg/dL Estim Creat Clear Calc Estimated GFR POC Glucose (60-115) mg/dL Random Glucose (60-115) mg/dL Lactic Acid (0.5-2.0) mmol/L Calcium (8.4-10.2) mg/dL Total Bilirubin (0.0-1.0) mg/dL Direct Bilirubin (0.0-0.5) mg/dL AST (5-31) U/L ALT (0-31) U/L Alkaline Phosphatase (39-117) U/L Ammonia 36 (13-55) umol/L Troponin I High Sens (<3.5-17.0) ng/L Total Protein (6.5-8.0) g/dL Albumin (3.5-5.0) g/dL Urine Color FABIEN Urine Appearance CLOUDY Urine pH 6.5 (5.0-8.0) Ur Specific [place] 1.025 (1.005-1.025) Urine Protein 3+ H (NEG-TRACE) MG/DL Urine Glucose (UA) NEG (NEG) MG/DL Urine Ketones 15 (NEG) MG/DL Urine Blood 3+ H (NEG) Urine Nitrite POS H (NEG) Ur Leukocyte Esterase 3+ H (NEG) Urine RBC 30-49 H (0) /HPF Urine WBC TNTC H (0-4) /HPF Ur Squamous Epith Cells NONE /LPF Urine Bacteria 4+ /LPF Urine Opiates Screen Not Detected (Not Detect) Ur Barbiturates Screen Not Detected (Not Detect) Ur Phencyclidine Scrn Not Detected (Not Detect) Ur Amphetamines Screen Not Detected (Not Detect) U Benzodiazepines Scrn Not Detected (Not Detect) Urine Cocaine Screen Not Detected (Not Detect) U Marijuana (THC) Screen Not Detected (Not Detect) Ethyl Alcohol mg/dL 03/03/20 Range/Units 23:02 WBC (4.8-10.8) X10*3/uL RBC (4.20-5.50) X10*6/uL Hgb (12.0-16.0) g/dl Hct (37-47) % MCV (80-98) fL MCH (27.0-33.0) pg MCHC (31.0-35.0) g/dl RDW (11.0-16.0) % Plt Count (160-400) X10*3/uL MPV (9.4-12.3) fL Immature Gran % (Auto) (0.0-0.4) % Neut % (Auto) (45-73) % Lymph % (Auto) (20-40) % [place] % (Auto) (2-11) % Eos % (Auto) (0-4) % Baso % (Auto) (0-2) % Lymph # (Auto) (1.2-4.9) X10*3/uL [place] # (Auto) (0.1-1.2) X10*3/uL Eos # (Auto) (0.0-0.4) X10*3/uL Baso # (Auto) (0.0-0.2) X10*3/uL Abs Immat Gran (auto) (0.00-0.03) X10*3/uL Absolute Neuts (auto) (2.0-8.3) X10*3/uL Absolute Nucleated RBC (0.0-0.012) X10*3/uL Nucleated RBC % (auto) (0.0-0.2) /100WBC Hold Blue Top Sodium (135-145) mmol/L Potassium (3.3-5.1) mmol/l Chloride (96-108) mmol/L Carbon Dioxide (22-29) mmol/L Anion Gap (12-20) BUN (9-16) mg/dL Creatinine (0.5-1.4) mg/dL Estim Creat Clear Calc Estimated GFR POC Glucose (60-115) mg/dL Random Glucose (60-115) mg/dL Lactic Acid 2.3 H* (0.5-2.0) mmol/L Calcium (8.4-10.2) mg/dL Total Bilirubin (0.0-1.0) mg/dL Direct Bilirubin (0.0-0.5) mg/dL AST (5-31) U/L ALT (0-31) U/L Alkaline Phosphatase (39-117) U/L Ammonia (13-55) umol/L Troponin I High Sens (<3.5-17.0) ng/L Total Protein (6.5-8.0) g/dL Albumin (3.5-5.0) g/dL Urine Color Urine Appearance Urine pH (5.0-8.0) Ur Specific [place] (1.005-1.025) Urine Protein (NEG-TRACE) MG/DL Urine Glucose (UA) (NEG) MG/DL Urine Ketones (NEG) MG/DL Urine Blood (NEG) Urine Nitrite (NEG) Ur Leukocyte Esterase (NEG) Urine RBC (0) /HPF Urine WBC (0-4) /HPF Ur Squamous Epith Cells /LPF Urine Bacteria /LPF Urine Opiates Screen (Not Detect) Ur Barbiturates Screen (Not Detect) Ur Phencyclidine Scrn (Not Detect) Ur Amphetamines Screen (Not Detect) U Benzodiazepines Scrn (Not Detect) Urine Cocaine Screen (Not Detect) U Marijuana (THC) Screen (Not Detect) Ethyl Alcohol mg/dL ECG Data Interpretation: Sinus tach. Ventricular rate 119. NV interval 108. QRS duration 78 Discharge Plan Discharge Clinical Impression: Acute UTI, Alcohol withdrawal delirium Patient Disposition: Admitted As Inpatient
[2020-03-03 21:35] LABS: Alanine Aminotransferase 19 U/L (0-31); Albumin Level 3.7 g/dL (3.5-5.0); Alkaline Phosphatase 274 U/L (39-117); Aspartate Amino Transferase 42 U/L (5-31); Bilirubin Direct 2.9 mg/dL (0.0-0.5); Bilirubin Total 3.7 mg/dL (0.0-1.0); Total Protein 7.7 g/dL (6.5-8.0)
--- NOTE | 2020-03-03 21:38 | XR_ITS ---
EXAMINATION: XR HIP, LEFT CLINICAL INFORMATION: Question fracture COMPARISON: None TECHNIQUE: Single view pelvis with 2 additional views of the left hip. FINDINGS: Some minimal degenerative changes are present in the left hip joint with some supra-acetabular sclerosis and lateral acetabular osteophyte. No fractures are seen. Phleboliths are noted in the pelvis. XR/XR hip LT w PEL1V IMPRESSION: No hip fracture. Mild degenerative changes.
[2020-03-03] MEDS: 0.9 % Sodium Chloride 1,000 ML 999 ML IVCONT (22:00)
[2020-03-03] MEDS: LORazepam 2 MG/ML VIAL 1 MG IVPUSH (22:00)
--- NOTE | 2020-03-03 22:05 | PC.NURSE ---
PT CURRENTLY WAXING AND WANING IN HER ORIENTATION TO TIME AND PLACE, ALERT SINCE ARRIVAL INTO MAIN ED. REQUIRED A 3 PERSON ASSIST, WITH NO STRENGTH OR ABILITY TO HOLD HERSELF UP. ABILITY TOFOLLOW COMMANDS ALSO WAXES AND WANES. GOOD STRENGTH IN BILAT ARMS, NO FACIAL DROOP. NO TREMORS NOTED THOUGH PATIENT ACTIVELY RESPONDING TO INTERNAL STIMULI.
--- NOTE | 2020-03-03 22:09 | PC.NURSE ---
STRAIGHT CATH WELL TOLERATED. FLUIDS RUNNING, PT MEDICATED PER EMR.
[2020-03-03 22:29] LABS: Glucose Urine UA NEG (NEG); Leukocyte Esterase Urine 3+ (NEG); Nitrite Urine POS (NEG); PH 6.5 (5.0-8.0); Specific Gravity - Urine 1.025 (1.005-1.025); Urine Blood 3+ (NEG); Urine Ketones 15 MG/DL (NEG); Urine Protein 3+ MG/DL (NEG-TRACE)
[2020-03-03 22:30] LABS: Appearance Urine CLOUDY; Color Urine AMBER
[2020-03-03 22:40] LABS: Bacteria Urine 4+ /LPF; RBC Urine 30-49 /HPF (0); WBC Urine TNTC /HPF (0-4)
[2020-03-03 22:41] VITALS: BP 131/67; PULSE 122; RESP 20; O2SAT 98
[2020-03-03 22:43] LABS: Ammonia 36 umol/L (13-55)
[2020-03-03 22:54] VITALS: BP 131/67; PULSE 115; RESP 24; TEMP 36.9
[2020-03-03] MEDS: cefTRIAXone sodium 1 GM in 0.9 % Sodium Chloride 50 ML IV (23:07)
[2020-03-03 23:14] LABS: Amphetamine Screen Urine Not Detected (Not Detect); Barbiturates, Urine Not Detected (Not Detect); Benzodiazepines Screen Urine Not Detected (Not Detect); Cannabinoid Screen Urine Not Detected (Not Detect); Cocaine Screen Urine Not Detected (Not Detect); Opiate Screen Urine Not Detected (Not Detect); Phencyclidine Screen Urine Not Detected (Not Detect)
[2020-03-03 23:29] LABS: Lactic Acid 2.3 mmol/L (0.5-2.0)
[2020-03-04] VITALS (16 sets, daily range): BP systolic 105–153; BP diastolic 52–110; PULSE 99–155; RESP 18–28; TEMP 36.4–39.6; O2SAT 97–100
--- NOTE | 2020-03-04 00:24 | PM.IMHP ---
History of Present Illness Date of Service: 03/04/20 Chief Complaint: fall, Altered Review of Systems Neurologic: Reports confusion Psychiatric: Psychiatric: Reports confusion [facility] Medical History (Updated 02/28/20 @ 00:00 by Background Daemtony) No known health problems Social History Alcohol intake: former Smoked in Last 30 Days: No Use of substances other than those prescribed or required for medical reasons: No Advance Directives: No Advance Directives Information Provided: Yes Meds Allergies Allergy/AdvReac Type Severity Reaction Status Date / Time No Known Allergies Allergy Verified 02/27/20 18:06 Physical Exam Vital Signs and Narrative: Vital Signs: Last Vital Signs Temp 98.5 F 03/03/20 22:54 Pulse 115 H 03/03/20 22:54 Resp 24 H 03/03/20 22:54 BP 131/67 03/03/20 22:54 Pulse Ox 98 03/03/20 22:41 Body Mass Index 29.2 Const: General: confusion Orientation/consciousness: confusion Neuro: General: confusion Results Labs CBC and Chem 7: 03/03/20 20:39 03/03/20 20:39 Labs: Laboratory Results - last 24 hr 03/03/20 03/03/20 03/03/20 20:39 20:39 20:39 MCV 98.7 H MCH 33.1 H MCHC 33.6 RDW 13.4 Plt Count 169 MPV 9.3 L Immature Gran % (Auto) 0.6 H Neut % (Auto) 78.3 H Lymph % (Auto) 11.2 L [place] % (Auto) 9.5 Eos % (Auto) 0.3 Baso % (Auto) 0.1 Lymph # (Auto) 0.8 L [place] # (Auto) 0.7 Eos # (Auto) 0.0 Baso # (Auto) 0.0 Abs Immat Gran (auto) 0.04 H Absolute Neuts (auto) 5.5 Absolute Nucleated RBC 0.000 Nucleated RBC % (auto) 0.0 Hold Blue Top Anion Gap 17 Estim Creat Clear Calc 66.9 Estimated GFR > 60 POC Glucose Random Glucose 115 Lactic Acid Calcium 8.9 Total Bilirubin 3.7 H Direct Bilirubin 2.9 H AST 42 H ALT 19 Alkaline Phosphatase 274 H Ammonia Troponin I High Sens Total Protein 7.7 Albumin 3.7 Urine Color Urine Appearance Urine pH Ur Specific [place] Urine Protein Urine Glucose (UA) Urine Ketones Urine Blood Urine Nitrite Ur Leukocyte Esterase Urine RBC Urine WBC Ur Squamous Epith Cells Urine Bacteria Urine Opiates Screen Ur Barbiturates Screen Ur Phencyclidine Scrn Ur Amphetamines Screen U Benzodiazepines Scrn Urine Cocaine Screen U Marijuana (THC) Screen Ethyl Alcohol < 10 03/03/20 03/03/20 03/03/20 20:39 20:39 21:05 MCV MCH MCHC RDW Plt Count MPV Immature Gran % (Auto) Neut % (Auto) Lymph % (Auto) [place] % (Auto) Eos % (Auto) Baso % (Auto) Lymph # (Auto) [place] # (Auto) Eos # (Auto) Baso # (Auto) Abs Immat Gran (auto) Absolute Neuts (auto) Absolute Nucleated RBC Nucleated RBC % (auto) Hold Blue Top SEE NOTE Anion Gap Estim Creat Clear Calc Estimated GFR POC Glucose 112 Random Glucose Lactic Acid Calcium Total Bilirubin Direct Bilirubin AST ALT Alkaline Phosphatase Ammonia Troponin I High Sens < 3.5 Total Protein Albumin Urine Color Urine Appearance Urine pH Ur Specific [place] Urine Protein Urine Glucose (UA) Urine Ketones Urine Blood Urine Nitrite Ur Leukocyte Esterase Urine RBC Urine WBC Ur Squamous Epith Cells Urine Bacteria Urine Opiates Screen Ur Barbiturates Screen Ur Phencyclidine Scrn Ur Amphetamines Screen U Benzodiazepines Scrn Urine Cocaine Screen U Marijuana (THC) Screen Ethyl Alcohol 03/03/20 03/03/20 03/03/20 21:52 21:52 21:52 MCV MCH MCHC RDW Plt Count MPV Immature Gran % (Auto) Neut % (Auto) Lymph % (Auto) [place] % (Auto) Eos % (Auto) Baso % (Auto) Lymph # (Auto) [place] # (Auto) Eos # (Auto) Baso # (Auto) Abs Immat Gran (auto) Absolute Neuts (auto) Absolute Nucleated RBC Nucleated RBC % (auto) Hold Blue Top Anion Gap Estim Creat Clear Calc Estimated GFR POC Glucose Random Glucose Lactic Acid Calcium Total Bilirubin Direct Bilirubin AST ALT Alkaline Phosphatase Ammonia 36 Troponin I High Sens Total Protein Albumin Urine Color FABIEN Urine Appearance CLOUDY Urine pH 6.5 Ur Specific [place] 1.025 Urine Protein 3+ H Urine Glucose (UA) NEG Urine Ketones 15 Urine Blood 3+ H Urine Nitrite POS H Ur Leukocyte Esterase 3+ H Urine RBC 30-49 H Urine WBC TNTC H Ur Squamous Epith Cells NONE Urine Bacteria 4+ Urine Opiates Screen Not Detected Ur Barbiturates Screen Not Detected Ur Phencyclidine Scrn Not Detected Ur Amphetamines Screen Not Detected U Benzodiazepines Scrn Not Detected Urine Cocaine Screen Not Detected U Marijuana (THC) Screen Not Detected Ethyl Alcohol 03/03/20 23:02 MCV MCH MCHC RDW Plt Count MPV Immature Gran % (Auto) Neut % (Auto) Lymph % (Auto) [place] % (Auto) Eos % (Auto) Baso % (Auto) Lymph # (Auto) [place] # (Auto) Eos # (Auto) Baso # (Auto) Abs Immat Gran (auto) Absolute Neuts (auto) Absolute Nucleated RBC Nucleated RBC % (auto) Hold Blue Top Anion Gap Estim Creat Clear Calc Estimated GFR POC Glucose Random Glucose Lactic Acid 2.3 H* Calcium Total Bilirubin Direct Bilirubin AST ALT Alkaline Phosphatase Ammonia Troponin I High Sens Total Protein Albumin Urine Color Urine Appearance Urine pH Ur Specific [place] Urine Protein Urine Glucose (UA) Urine Ketones Urine Blood Urine Nitrite Ur Leukocyte Esterase Urine RBC Urine WBC Ur Squamous Epith Cells Urine Bacteria Urine Opiates Screen Ur Barbiturates Screen Ur Phencyclidine Scrn Ur Amphetamines Screen U Benzodiazepines Scrn Urine Cocaine Screen U Marijuana (THC) Screen Ethyl Alcohol Imaging Radiologist's Impressions: Impressions Head CT 03/03/20 21:12 IMPRESSION: No acute intracranial pathology. There is subtle low density in the posterior limb of left internal capsule extending to the left cerebral peduncle with low density in the left kip suggesting remote prior ischemia and [place] degeneration. Consider MRI for further evaluation as clinically indicated. No acute osseous abnormality of the cervical spine. Multilevel degenerative disc disease and facet arthropathy. Cervical Spine CT 03/03/20 21:13 IMPRESSION: No acute intracranial pathology. There is subtle low density in the posterior limb of left internal capsule extending to the left cerebral peduncle with low density in the left kip suggesting remote prior ischemia and [place] degeneration. Consider MRI for further evaluation as clinically indicated. No acute osseous abnormality of the cervical spine. Multilevel degenerative disc disease and facet arthropathy. Hip/Pelvis X-Ray 03/03/20 21:38 IMPRESSION: No hip fracture. Mild degenerative changes.
[2020-03-04] MEDS: PHENobarbitaL sodium 130 MG/ML VIAL 210 MG IM (00:32)
--- NOTE | 2020-03-04 00:44 | PC.NURSE ---
patient resting in bed alert with confusion first dose of phenobarbital given patient is still tachy at 133. seizure pads in place repositioned for comfort awaiting bed assignment and improvement in symptoms
[2020-03-04 01:08] LABS: Reflex Lactate? Lactic Acid Added
[2020-03-04 01:59] LABS: ~Lactic Acid-LAB USE ONLY 1.1 mmol/L (0.5-2.0)
[2020-03-04 02:32] LABS: SARS COV2 PCR INHOUSE NEGATIVE (Negative)
--- NOTE | 2020-03-04 02:42 | PC.NURSE ---
Pt transferred from room 16 to room 4. Report taken from Manuela, guicho RN resuming care.
[2020-03-04] MEDS: PHENobarbitaL sodium 65 MG/ML VIAL 150 MG IVPUSH ×3 (02:48→04:19)
--- NOTE | 2020-03-04 02:52 | PC.NURSE ---
Pt medicated with Phenobarb per EMAR.
[2020-03-04] MEDS: 0.9 % Sodium Chloride 1,000 ML 1000 ML IVCONT (02:55)
--- NOTE | 2020-03-04 02:57 | PC.NURSE ---
IVF infusing per EMAR.
[2020-03-04] MEDS: Acetaminophen Supp 650 MG SUPP.RECT PR (03:09)
--- NOTE | 2020-03-04 03:10 | PC.NURSE ---
Pt medicated with rectal Tylenol per EMAR.
--- NOTE | 2020-03-04 03:31 | PC.NURSE ---
Pt medicated with additional dose of IV Phenobarb per EMAR. HR 133 bpm at this time. Continue to monitor.
--- NOTE | 2020-03-04 03:47 | PC.NURSE ---
Pt resting comfortably in bed at this time, sleeping. VSS. Continue to monitor.
--- NOTE | 2020-03-04 04:10 | PC.NURSE ---
Nursing supervisor inspection and testing called as the ED pyxis is out of Phenobarb. Nursing sup to bring Phenobarb clarissa.
--- NOTE | 2020-03-04 04:21 | PC.NURSE ---
Pt medicated with additional dose of Phenobarb 150 mg IV per EMAR. Pt resting comfortably in bed at this time. HR 118/min, RR 24/min. Continue to monitor.
--- NOTE | 2020-03-04 04:55 | PC.NURSE ---
Addendum entered by Vi Faustin 03/04/20 06:08: Upon arrival into room 4, Pt found to be ill kempt with poor dentition, arriving from home where she lives alone. Skin extremely hot to the touch, mucous membranes dry/cracked. Rectal temp noted to be 103.2, HR 166 bpm. Pt medicated with IVFs that had not been given previously, IVF placed in a pressure bag. Pt also medicated with Phenobarb 150 mg IVP x 3 since 229. Pt tolerating small ice chips well, able to swallow without difficulty or hesitation. Pt now sleeping in bed, HR 114/min, RR 20/min. Continue to monitor. Original Note: Pt found laying on bed, extremely altered with auditory and visual hallucinations, pt grabbing at objects in the air. Pt unable to be redirected. Pt speaking in full sentences but not making any sense often mumbling continuously. Pt was transferred into room 4 @ 0230 after having been in room 16 for several hours. Per previous RN, pt came in at 1900 for alcohol withdrawals, pt reports having been detoxing at home for the last 6 weeks however recently started hallucinating, prompting her to seek medical treatment. Pt self reported drinking 6 glasses of wine/day until 6 weeks ago. Pt was medicated @ 2200 with 1 mg of Ativan IVP with no relief, at this point the nurses notes state that pt became very altered and unable to follow commands, no relief was noted with the Ativan. Pt previously found to have a UTI and was given 1 gm of Ceftriaxone @ 0000. @ 0030, pt was started on the Phenobarb protocol and given her first IM dose but her mental status continued to deteriorate, she became very tachycardic and was transferred into room 4 for closer monitoring. Pt ill kempt with poor dentition, arriving from home where she lives alone. Skin extremely hot to the touch, mucous membranes dry/cracked. Rectal temp noted to be 103.2, HR 166 bpm. Pt medicated with IVFs that had not been given previously, IVF placed in a pressure bag. Pt also medicated with Phenobarb 150 mg IVP x 3 since 229. Pt tolerating small ice chips well, able to swallow without difficulty or hesitation. Pt now sleeping in bed, HR 114/min, RR 20/min. Continue to monitor.
--- NOTE | 2020-03-04 05:54 | PC.NURSE ---
Pt remains asleep in bed at this time, visible chest rise noted, RR 20/min. Continue to monitor.
--- NOTE | 2020-03-04 06:15 | PC.NURSE ---
Unable to complete med rec during shift due to AMS.
[2020-03-04] MEDS: 0.9 % Sodium Chloride 1,000 ML 100 ML IVCONT ×2 (10:26→15:36)
[2020-03-04] MEDS: PHENobarbitaL sodium 65 MG/ML VIAL 75 MG IVPUSH (10:26)
[2020-03-04] MEDS: Enoxaparin Sodium 40 MG/0.4 ML SYRINGE SUBCUT (10:26)
[2020-03-04] MEDS: 0.9 % Sodium Chloride Flush 3 ML SYRINGE IVFLUSH ×2 (10:27→15:41)
[2020-03-04] MEDS: cefTRIAXone sodium 1 GM in 0.9 % Sodium Chloride 50 ML IV (10:27)
--- NOTE | 2020-03-04 11:46 | PM.CCN ---
Critical Care Event Note Summary Code activated: No Narrative: 69-year-old lady, chronic alcoholic, being evaluated for alcohol withdrawal and Gram-negative UTI, received phenobarbital loading and ceftriaxone. On my evaluation - alert, answering slowly but appropriately, systolic blood pressure in 120's, normoxemic on room air, mildly tachycardic at 110's. At this time patient does not require intensive care level of monitoring. Please notify for re-evaluation, if patient's condition changes. Critical Care Time (minutes): 0
--- NOTE | 2020-03-04 12:07 | PC.NURSE ---
PT has woken up, alert to person, place, time. MD aware. per hospitalist pt [place] [facility] [place] agreeable to plan. states she does not feel pain currently. will continue to monitor
--- NOTE | 2020-03-04 13:05 | PC.NURSE ---
called [facility] to give report, Nurse taking patient is currently off floor, will call back and attempt to give nurse to nurse report.
--- NOTE | 2020-03-04 13:23 | PM.IMHP ---
History of Present Illness Date of Service: 03/04/20 <Coretta Diego NP - Last Filed: 03/04/20 13:57> Chief Complaint: Alcohol withdrawl <Coretta Diego NP - Last Filed: 03/04/20 13:57> 69 year old women presenting with alcohol withdrawal symptoms. According to the patient's sister she had been hallucinating for 4 days. Apparently the patient stop drinking approximately 5 days ago. She presented to the ER with continued tremors, heart rate in the 150s. She was given a total 525 mg of IV phenobarbital and unfortunately she became unresponsive but continued to be hemodynamically stable. She was in the ER for at least 9-10 hours and then midmorning began to wake up and respond. She was seen by the ICU attending but by then the patient was alert . She did spike a fever of 103.2 With heart rate of 110 and blood cultures were gram negative and she was found to have a urinary tract infection. She was given a dose of Rocephin. She still remains mildly tremulous and she will continue to receive doses of phenobarbital. <Coretta Diego NP - Last Filed: 03/04/20 13:57> Review of Systems Review of Systems: Reports feeling tremulous and tired respiratory denies any shortness of breath coverage production cardiovascular is adjustment of any PND or edema gastrointestinal denies any dysphagia abdominal pain nausea vomiting or diarrhea genitourinary denies any dysuria frequency or hematuria musculoskeletal denies any joint pain or swelling neuropsych denies any weakness or seizures all other systems reviewed are negative <Coretta Diego NP - Last Filed: 03/04/20 13:57> Neurologic: Reports confusion <Coretta Diego NP - Last Filed: 03/04/20 13:57> Psychiatric: Psychiatric: Reports confusion <Coretta Diego NP - Last Filed: 03/04/20 13:57> [facility] Medical History: Medical History (Updated 03/05/20 @ 15:13 by Johnny Carlisle MD) Alcohol abuse No known health problems <Coretta Diego NP - Last Filed: 03/04/20 13:57> Pertinent family history: no cardiac disease <Coretta Diego NP - Last Filed: 03/04/20 13:57> Social History: Social History (Updated 03/04/20 @ 13:37 by Coretta Diego NP) Household Members: Family Housing: House Do you presently have visiting nurse or other home services: No Alcohol intake: former Smoking Status: Smoker, status unknown Smoked in Last 30 Days: No Use of substances other than those prescribed or required for medical reasons: No Currently Displaying Signs/Symptoms of Drug Intoxication Withdrawal: No Have you been hit, kicked, punched, or otherwise hurt by someone within the past year? If so, by whom?: No Do you feel safe in your current relationship?: No Is there a partner from a previous relationship who is making you feel unsafe now?: No Are you made to feel afraid or neglected: No Advance Directives: No Advance Directives Information Provided: Yes Do you have thoughts of harming others: None Do you have a plan to hurt others: No Plan Recently lost weight without trying: No service: No <Coretta Diego NP - Last Filed: 03/04/20 13:57> Meds Allergies/Adverse reactions: Allergies Allergy/AdvReac Type Severity Reaction Status Date / Time No Known Allergies Allergy Verified 02/27/20 18:06 <Coretta Diego NP - Last Filed: 03/04/20 13:57> Physical Exam Vital Signs and Narrative: Vital Signs: Last Vital Signs Temp 99 F 03/04/20 10:00 Pulse 99 03/04/20 10:00 Resp 18 03/04/20 10:00 BP 107/61 03/04/20 10:00 Pulse Ox 97 03/04/20 10:00 Body Mass Index 29.2 <Coretta Diego NP - Last Filed: 03/04/20 13:57> Appearing in no acute distress, tremulous head is normocephalic atraumatic eyes pupils are PERRLA sclera is anicteric mouth throat mucous membranes are intact and moist neck is supple no lymphadenopathy, no JVD noted lung sounds are clear to auscultation heart regular rate rhythm, tachycardic positive bowel sounds, abdomen is soft, nontender neuro patient is alert x3, no focal deficits <Coretta Diego NP - Last Filed: 03/04/20 13:57> Const: General: confusion <Coretta Diego NP - Last Filed: 03/04/20 13:57> Orientation/consciousness: confusion <Coretta Diego NP - Last Filed: 03/04/20 13:57> Neuro: General: confusion <Coretta Diego NP - Last Filed: 03/04/20 13:57> Results Labs CBC and Chem 7: : 03/06/20 05:26 03/06/20 05:26 <Coretta Diego NP - Last Filed: 03/04/20 13:57> Labs: Laboratory Results - last 24 hr 03/03/20 03/03/20 03/03/20 20:39 20:39 20:39 MCV 98.7 H MCH 33.1 H MCHC 33.6 RDW 13.4 Plt Count 169 MPV 9.3 L Immature Gran % (Auto) 0.6 H Neut % (Auto) 78.3 H Lymph % (Auto) 11.2 L [place] % (Auto) 9.5 Eos % (Auto) 0.3 Baso % (Auto) 0.1 Lymph # (Auto) 0.8 L [place] # (Auto) 0.7 Eos # (Auto) 0.0 Baso # (Auto) 0.0 Abs Immat Gran (auto) 0.04 H Absolute Neuts (auto) 5.5 Absolute Nucleated RBC 0.000 Nucleated RBC % (auto) 0.0 Hold Blue Top Anion Gap 17 Estim Creat Clear Calc 66.9 Estimated GFR > 60 POC Glucose Random Glucose 115 Lactic Acid Lactic Acid Fup @ 2Hr Calcium 8.9 Total Bilirubin 3.7 H Direct Bilirubin 2.9 H AST 42 H ALT 19 Alkaline Phosphatase 274 H Ammonia Troponin I High Sens Total Protein 7.7 Albumin 3.7 Urine Color Urine Appearance Urine pH Ur Specific [place] Urine Protein Urine Glucose (UA) Urine Ketones Urine Blood Urine Nitrite Ur Leukocyte Esterase Urine RBC Urine WBC Ur Squamous Epith Cells Urine Bacteria Urine Opiates Screen Ur Barbiturates Screen Ur Phencyclidine Scrn Ur Amphetamines Screen U Benzodiazepines Scrn Urine Cocaine Screen U Marijuana (THC) Screen Ethyl Alcohol < 10 Coronavirus (PCR) 03/03/20 03/03/20 03/03/20 20:39 20:39 21:05 MCV MCH MCHC RDW Plt Count MPV Immature Gran % (Auto) Neut % (Auto) Lymph % (Auto) [place] % (Auto) Eos % (Auto) Baso % (Auto) Lymph # (Auto) [place] # (Auto) Eos # (Auto) Baso # (Auto) Abs Immat Gran (auto) Absolute Neuts (auto) Absolute Nucleated RBC Nucleated RBC % (auto) Hold Blue Top SEE NOTE Anion Gap Estim Creat Clear Calc Estimated GFR POC Glucose 112 Random Glucose Lactic Acid Lactic Acid Fup @ 2Hr Calcium Total Bilirubin Direct Bilirubin AST ALT Alkaline Phosphatase Ammonia Troponin I High Sens < 3.5 Total Protein Albumin Urine Color Urine Appearance Urine pH Ur Specific [place] Urine Protein Urine Glucose (UA) Urine Ketones Urine Blood Urine Nitrite Ur Leukocyte Esterase Urine RBC Urine WBC Ur Squamous Epith Cells Urine Bacteria Urine Opiates Screen Ur Barbiturates Screen Ur Phencyclidine Scrn Ur Amphetamines Screen U Benzodiazepines Scrn Urine Cocaine Screen U Marijuana (THC) Screen Ethyl Alcohol Coronavirus (PCR) 03/03/20 03/03/20 03/03/20 21:52 21:52 21:52 MCV MCH MCHC RDW Plt Count MPV Immature Gran % (Auto) Neut % (Auto) Lymph % (Auto) Tal[place] % (Auto) Eos % (Auto) Baso % (Auto) Lymph # (Auto) [place] # (Auto) Eos # (Auto) Baso # (Auto) Abs Immat Gran (auto) Absolute Neuts (auto) Absolute Nucleated RBC Nucleated RBC % (auto) Hold Blue Top Anion Gap Estim Creat Clear Calc Estimated GFR POC Glucose Random Glucose Lactic Acid Lactic Acid Fup @ 2Hr Calcium Total Bilirubin Direct Bilirubin AST ALT Alkaline Phosphatase Ammonia 36 Troponin I High Sens Total Protein Albumin Urine Color FABIEN Urine Appearance CLOUDY Urine pH 6.5 Ur Specific [place] 1.025 Urine Protein 3+ H Urine Glucose (UA) NEG Urine Ketones 15 Urine Blood 3+ H Urine Nitrite POS H Ur Leukocyte Esterase 3+ H Urine RBC 30-49 H Urine WBC TNTC H Ur Squamous Epith Cells NONE Urine Bacteria 4+ Urine Opiates Screen Not Detected Ur Barbiturates Screen Not Detected Ur Phencyclidine Scrn Not Detected Ur Amphetamines Screen Not Detected U Benzodiazepines Scrn Not Detected Urine Cocaine Screen Not Detected U Marijuana (THC) Screen Not Detected Ethyl Alcohol Coronavirus (PCR) 03/03/20 03/04/20 03/04/20 23:02 01:35 01:35 MCV MCH MCHC RDW Plt Count MPV Immature Gran % (Auto) Neut % (Auto) Lymph % (Auto) [place] % (Auto) Eos % (Auto) Baso % (Auto) Lymph # (Auto) [place] # (Auto) Eos # (Auto) Baso # (Auto) Abs Immat Gran (auto) Absolute Neuts (auto) Absolute Nucleated RBC Nucleated RBC % (auto) Hold Blue Top Anion Gap Estim Creat Clear Calc Estimated GFR POC Glucose Random Glucose Lactic Acid 2.3 H* Lactic Acid Fup @ 2Hr 1.1 Calcium Total Bilirubin Direct Bilirubin AST ALT Alkaline Phosphatase Ammonia Troponin I High Sens Total Protein Albumin Urine Color Urine Appearance Urine pH Ur Specific [place] Urine Protein Urine Glucose (UA) Urine Ketones Urine Blood Urine Nitrite Ur Leukocyte Esterase Urine RBC Urine WBC Ur Squamous Epith Cells Urine Bacteria Urine Opiates Screen Ur Barbiturates Screen Ur Phencyclidine Scrn Ur Amphetamines Screen U Benzodiazepines Scrn Urine Cocaine Screen U Marijuana (THC) Screen Ethyl Alcohol Coronavirus (PCR) NEGATIVE <Coretta Diego NP - Last Filed: 03/04/20 13:57> Imaging Radiologist's Impressions: Impressions Head CT 03/03/20 21:12 IMPRESSION: No acute intracranial pathology. There is subtle low density in the posterior limb of left internal capsule extending to the left cerebral peduncle with low density in the left kip suggesting remote prior ischemia and Wallerian degeneration. Consider MRI for further evaluation as clinically indicated. No acute osseous abnormality of the cervical spine. Multilevel degenerative disc disease and facet arthropathy. Cervical Spine CT 03/03/20 21:13 IMPRESSION: No acute intracranial pathology. There is subtle low density in the posterior limb of left internal capsule extending to the left cerebral peduncle with low density in the left kip suggesting remote prior ischemia and Wallerian degeneration. Consider MRI for further evaluation as clinically indicated. No acute osseous abnormality of the cervical spine. Multilevel degenerative disc disease and facet arthropathy. Hip/Pelvis X-Ray 03/03/20 21:38 IMPRESSION: No hip fracture. Mild degenerative changes. <Coretta Diego NP - Last Filed: 03/04/20 13:57> Assessment and Plan (1) Alcohol withdrawal delirium: Status: Acute <Coretta Diego NP - Last Filed: 03/04/20 13:57> (2) Acute UTI: Status: Acute <Coretta Diego NP - Last Filed: 03/04/20 13:57> (3) Bacteremia: Status: Acute <Coretta Diego NP - Last Filed: 03/04/20 13:57> (4) Severe sepsis: Status: Acute <Coretta Diego NP - Last Filed: 03/04/20 13:57> 69-year-old woman admitted with alcoholic delirium tremors. She was given IV phenobarbital and became unresponsive for several hours. She did seem to wake up mid morning and at this point is safe for transfer to [facility] [place]. She was also noted to have Gram-negative rods on the blood cultures secondary to urinary tract infection. Severe sepsis. Fever, tachycardia, lactic acidosis, UTI. Blood cultures show gram negative rods. Bacteremia. UTI, gram negative rods. Rocephin. UTI. Rocephin. Alcohol dependance and withdrawl. Phenobarbitol protocol. Discussed the importance of cessation. Thiamine, folic acid, MVI. Normocytic anemia. Baseline. No signs of bleeding. DVT prophylaxis with heparin Discussed with Dr. Carlisle Full code <Coretta Diego NP - Last Filed: 03/04/20 13:57>
--- NOTE | 2020-03-04 14:54 | PM.EVENT ---
Event Note Event Note: admission note Date of service 03/04/2020 the patient was seen and evaluated with Coretta Diego NP. I agree with her note, assessment and plan with the following. A 69 years old lady with PMH of alcohol abuse who presented to the hospital with hallucination, altered mentation, combative behavior and tremors. Received phenobarbital the emergency for diagnosis of alcohol withdrawal with fair response as she slept all night and she woke up feeling better in the morning. Analysis was concerning for urine infection. Blood culture is growing gram-negative rods. Admitted for further evaluation treatment. Gram-negative bacteremia Secondary to UTI Pending blood cultures sensitivity Continue ceftriaxone for antibiotics Alcohol abuse Alcohol withdrawal next Lyme continue follow barbital protocol To give thiamine, folic acid and multivitamin Rest of evaluations by [employer] OPERATOR note.
[2020-03-04] MEDS: PHENobarbitaL sodium 130 MG/ML VIAL 157 MG IM ×2 (15:35→18:51)
[2020-03-04] MEDS: PHENobarbitaL 15 MG TABLET 45 MG PO (21:30)
[2020-03-05] VITALS (8 sets, daily range): BP systolic 103–140; BP diastolic 56–71; PULSE 95–118; RESP 18–20; TEMP 36.2–37; O2SAT 95–100
[2020-03-05] MEDS: 0.9 % Sodium Chloride 1,000 ML 100 ML IVCONT ×2 (01:38→16:41)
[2020-03-05 06:58] LABS: MANUAL DIFF FLAG NO
[2020-03-05 07:05] LABS: Basophils Percent Auto 0.3 % (0-2); Eosinophils Percent Auto 0.6 % (0-4); Hematocrit 25.3 % (37-47); Hemoglobin 8.4 g/dl (12.0-16.0); Imm Gran Abs Auto 0.03 X10*3/uL (0.00-0.03); Imm Gran Pct Auto 0.9 % (0.0-0.4); Lymphocytes Absolute Auto 0.8 X10*3/uL (1.2-4.9); Lymphocytes Percent Auto 22.7 % (20-40); Mean Corpuscular HGB Conc 33.2 g/dl (31.0-35.0); Mean Corpuscular Hemoglobin 33.5 pg (27.0-33.0); Mean Corpuscular Volume 100.8 fL (80-98); Mean Platelet Volume 9.7 fL (9.4-12.3); Monocytes Absolute Auto 0.5 X10*3/uL (0.1-1.2); Monocytes Percent Auto 13.2 % (2-11); Neutrophils Absolute Auto 2.2 X10*3/uL (2.0-8.3); Neutrophils Percent Auto 62.3 % (45-73); Platelet Count 116 X10*3/uL (160-400); Red Blood Count 2.51 X10*6/uL (4.20-5.50); Red Cell Distribution Width 13.4 % (11.0-16.0); White Blood Count 3.5 X10*3/uL (4.8-10.8)
[2020-03-05] MEDS: PHENobarbitaL 15 MG TABLET 45 MG PO ×2 (07:46→21:52)
[2020-03-05 07:53] LABS: Alanine Aminotransferase 18 U/L (0-31); Albumin Level 2.8 g/dL (3.5-5.0); Alkaline Phosphatase 201 U/L (39-117); Anion Gap 12 (12-20); Aspartate Amino Transferase 44 U/L (5-31); Bilirubin Direct 1.8 mg/dL (0.0-0.5); Bilirubin Total 2.1 mg/dL (0.0-1.0); Blood Urea Nitrogen 16 mg/dL (9-16); Calcium 7.8 mg/dL (8.4-10.2); Carbon Dioxide 25 mmol/L (22-29); Chloride 101 mmol/L (96-108); Creatinine Clr Calc Pharmacy 88.1; Estimated Glomerular Filt Rate > 60; Glucose Random 100 mg/dL (60-115); Potassium 3.3 mmol/l (3.3-5.1); Sodium 135 mmol/L (135-145)
--- NOTE | 2020-03-05 07:56 | P.CDIC_ITS ---
CDI Concurrent Query Service Date: 03/05/20 Documentation Clarification: Please clarify if you are treating a proba ble/suspected/likely or confirmed: Toxic encephalopathy poa resolved Metabolic encephalopathy Please specify if known Provider Response: Other Other Diagnosis: At admission patient had no encephalopathy PLEASE DO NOT DELETE/MODIFY EXISTING CONTENT Additional information is needed in order to code to the highest accuracy and appropriate Severity of Illness (SOI). Please clarify the information noted below in your progress notes and discharge summary. Risk Factors/Clinical Indicators/Treatments ED: Severe hallucinations, tremors, altered mental status w confusion poa Alcoholic withdrawal w deliriums. Hallucinations worse over past four days, head trauma a month ago ? contributing to AMS. Severe sepsis UTI. Rocephin, IV Phenobarbital, IV fluids CDS: Katlyn Vega CCS, [facility] Contact Number: [phone] Please Review the information above and exercise your independent professional judgment in responding to the query. If you concur, pleas document in the PROGRESS NOTES and DISCHARGE SUMMARY. If you do not agree with the query, please document in the query above. THIS QUERY IS PART OF THE PERMANENT MEDICAL RECORD
[2020-03-05] MEDS: Heparin Sodium,Porcine 5,000 UNIT/ML VIAL 5000 UNIT SUBCUT ×2 (11:15→21:51)
[2020-03-05] MEDS: cefTRIAXone sodium 1 GM in 0.9 % Sodium Chloride 50 ML IV (11:15)
--- NOTE | 2020-03-05 12:03 | MHC.CM.PN ---
dc plan home with sister pt has own transportion home
--- NOTE | 2020-03-05 15:04 | HO.PM.IMPN ---
Subjective Subjective Date of Service: 03/05/20 Interval History: the patient was seen and evaluated this morning Laying in bed, feels comfortable, asking about leaving home and against medical advice Reports feeling okay, seems anxious Denies any fever, chills or shortness of breath No reported other overnight events. Review of Systems Review of Systems: Yes all other systems are reviewed and are negative Constitutional No fever, chills or weakness No chest pain, palpitation No shortness of breath or coughing No abdominal pain, nausea or vomiting No urinary symptoms No any rash or wounds Physical Exam Vital Signs: Vital Signs: Last Vital Signs Temp 97.2 F 03/05/20 11:17 Pulse 113 H 03/05/20 11:17 Resp 20 03/05/20 11:17 BP 116/63 03/05/20 11:17 Pulse Ox 97 03/05/20 11:17 Body Mass Index 29.2 Constitutional : Alert, oriented, looks mildly anxious Neck : Normal inspection, Supple Cardiovascular : RRR, S1 S2, no lower extremity edema Respiratory : Good bilateral air entry, no crackles, wheezes or rhonchi Gastrointestinal: soft, lax, Normal bowel sounds, Non tender Skin : Warm/Dry, No rash Neurological : Alert & oriented x2, No focal deficit Objective Data Current Medications Generic Name Dose Route Start Last Admin Trade Name Freq PRN Reason Stop Dose Admin Acetaminophen 650 mg 03/04/20 09:48 Acetaminophen 325 Mg Tablet PO Q6H PRN Pain, Mild (Pain Scale 1-3) Acetaminophen 650 mg 03/04/20 15:10 Acetaminophen 325 Mg Tablet PO Q6H PRN Pain, Mild (Pain Scale 1-3) Heparin Sodium (Porcine) 5,000 unit 03/05/20 10:00 03/05/20 11:15 Heparin Sodium,Porcine 5,000 Unit/Ml Vial SUBCUT 5,000 unit Q12H LEWIS Administration Ceftriaxone Sodium 1 gm/ 50 mls @ 100 mls/hr 03/04/20 09:48 03/05/20 12:38 Sodium Chloride IV Infused Q24H LEWIS Infusion Sodium Chloride 1,000 mls @ 100 mls/hr 03/04/20 09:49 03/05/20 04:57 Ns IVCONT Not Given .Q10H LEWIS Medication 1 each 03/04/20 09:00 No Benzodiazepines MISCELLANE DAILY LEWIS Ondansetron HCl 4 mg 03/04/20 09:48 Ondansetron Hcl 4 Mg/2 Ml Vial IVPUSH Q8H PRN Nausea and Vomiting Phenobarbital 45 mg 03/04/20 21:00 03/05/20 07:46 Phenobarbital 15 Mg Tablet PO 03/06/20 09:01 45 mg BID [facility] Administration Protocol Phenobarbital 30 mg 03/06/20 21:00 Phenobarbital 30 Mg Tablet PO 03/08/20 09:01 BID [facility] Phenobarbital 30 mg 03/09/20 09:00 Phenobarbital 30 Mg Tablet PO 03/10/20 09:01 DAILY [facility] Sodium Chloride 3 ml 03/04/20 09:48 03/05/20 07:46 0.9 % Sodium Chloride Flush 3 Ml Syringe IVFLUSH Not Given QSHIFT [facility] Sodium Chloride 3 ml 03/04/20 16:00 03/05/20 07:46 0.9 % Sodium Chloride Flush 3 Ml Syringe IVFLUSH Not Given QSHIFT [facility] Labs CBC & Chem 7: 03/05/20 05:51 03/05/20 05:51 Microbiology Microbiology Results: Microbiology 03/03/20 23:02 Blood - Venous Blood Culture - Preliminary Gram negative clara 03/03/20 22:53 Blood - Venous Blood Culture - Preliminary Gram negative clara 03/03/20 22:31 Urine Catheterized - [place] Catheter Urine Culture - Preliminary Gram negative clara Assessment and Plan (1) Alcohol withdrawal delirium: Status: Acute (2) Acute UTI: Status: Acute (3) Bacteremia: Status: Acute (4) Severe sepsis: Status: Acute Assessment and Plan: 69-year-old woman admitted with alcoholic delirium tremors. She was given IV phenobarbital and became unresponsive for several hours. She did seem to wake up mid morning and at this point is safe for [place] [facility] [place] She was also noted to have Gram-negative rods on the blood cultures secondary to urinary tract infection. Severe sepsis. resolved Bacteremia. UTI No history of resistant bacteria for urine andBlood culture growing gram negative rods Continue with Rocephin. continue IV fluids Alcohol dependance In acute withdrawl. Continue Phenobarbitol protocol Thiamine, folic acid, MVI. Transaminitis likely 2/2 alcohol abuse repeated labs trending down to monitor Normocytic anemia. Baseline. No signs of bleeding. DVT heparin (5) Transaminitis: Status: Acute
[2020-03-05] MEDS: 0.9 % Sodium Chloride Flush 3 ML SYRINGE IVFLUSH ×2 (16:40→16:41)
[2020-03-06] MEDS: 0.9 % Sodium Chloride 1,000 ML 100 ML IVCONT (03:34)
[2020-03-06 03:38] VITALS: BP 132/71; PULSE 90; RESP 18; TEMP 37.1; O2SAT 99
[2020-03-06 06:50] LABS: Hematocrit 24.6 % (37-47); Hemoglobin 8.2 g/dl (12.0-16.0); Mean Corpuscular HGB Conc 33.3 g/dl (31.0-35.0); Mean Corpuscular Hemoglobin 32.8 pg (27.0-33.0); Mean Corpuscular Volume 98.4 fL (80-98); Platelet Count 115 X10*3/uL (160-400); Red Cell Distribution Width 13.2 % (11.0-16.0); White Blood Count 3.2 X10*3/uL (4.8-10.8)
[2020-03-06 07:01] VITALS: BP 99/62; PULSE 90; RESP 20; TEMP 36.7; O2SAT 98
[2020-03-06 07:11] LABS: Alanine Aminotransferase 19 U/L (0-31); Albumin Level 2.7 g/dL (3.5-5.0); Alkaline Phosphatase 197 U/L (39-117); Anion Gap 14 (12-20); Aspartate Amino Transferase 41 U/L (5-31); Bilirubin Direct 1.5 mg/dL (0.0-0.5); Bilirubin Total 1.5 mg/dL (0.0-1.0); Blood Urea Nitrogen 13 mg/dL (9-16); Calcium 7.9 mg/dL (8.4-10.2); Carbon Dioxide 22 mmol/L (22-29); Chloride 101 mmol/L (96-108); Creatinine Clr Calc Pharmacy 94.4; Estimated Glomerular Filt Rate > 60; Glucose Random 85 mg/dL (60-115); Potassium 3.1 mmol/l (3.3-5.1); Sodium 134 mmol/L (135-145); Total Protein 5.9 g/dL (6.5-8.0)
[2020-03-06] MEDS: cefTRIAXone sodium 1 GM in 0.9 % Sodium Chloride 50 ML IV (09:26)
[2020-03-06] MEDS: 0.9 % Sodium Chloride Flush 3 ML SYRINGE IVFLUSH ×2 (09:26→09:27)
[2020-03-06] MEDS: Folic Acid 1 MG TABLET PO (09:29)
[2020-03-06] MEDS: PHENobarbitaL 15 MG TABLET 45 MG PO (09:29)
[2020-03-06] MEDS: Thiamine HCL 100 MG TABLET PO (09:29)
[2020-03-06 10:59] VITALS: BP 115/61; PULSE 95; RESP 18; TEMP 37.1; O2SAT 97
--- NOTE | 2020-03-06 11:05 | PM.DS ---
DS: Providers Provider Date of admission: 03/04/20 00:22 Primary care physician: Aldair Physician DS: Diagnosis Discharge Diagnosis (1) Severe sepsis: Status: Acute (2) Bacteremia: Status: Acute (3) Alcohol withdrawal delirium: Status: Acute (4) Acute UTI: Status: Acute (5) Transaminitis: Status: Acute DS: Medications Discharge Medications Home Medications: Previous Rx's Medication Instructions Recorded naproxen 500 mg PO BID PRN #20 tab 02/27/20 cefuroxime axetil 500 mg PO Q12H #24 tab 03/06/20 folic acid 1 mg PO DAILY #30 tab 03/06/20 thiamine HCl (vitamin B1) 100 mg PO DAILY #30 tab 03/06/20 DS: Summary Hospital Course Hospital Course: Admission note HPI 69 year old women presenting with alcohol withdrawal symptoms. According to the patient's sister she had been hallucinating for 4 days. Apparently the patient stop drinking approximately 5 days ago. She presented to the ER with continued tremors, heart rate in the 150s. She was given a total 525 mg of IV phenobarbital and unfortunately she became unresponsive but continued to be hemodynamically stable. She was in the ER for at least 9-10 hours and then midmorning began to wake up and respond. She was seen by the ICU attending but by then the patient was alert . She did spike a fever of 103.2 With heart rate of 110 and blood cultures were gram negative and she was found to have a urinary tract infection. She was given a dose of Rocephin. She still remains mildly tremulous and she will continue to receive doses of phenobarbital. Hospital course The patient was admitted for severe sepsis secondary to UTI. Blood cultures became positive growing pansensitive E coli. The patient was treated with ceftriaxone with good response as no urinary symptoms reported. No reported back pain or CVA tenderness on exam. Plan to discharge home on Ceftin to finish total of 2 weeks of antibiotics. Her mental status was a concern time in the emergency after receiving phenobarbital for alcohol withdrawal delirium. Mental status improved after receiving the phenobarbital back to baseline. She continue the phenobarbital protocol with good response. She was advised to quit drinking alcohol and evaluated by the care team. It liver enzymes were noticed to be elevated at time of presentation which believed to be secondary to alcohol. Liver enzymes trended down during the hospital stay close to baseline. Time Spent with Patient Time attestation: Total time spent providing and/or coordinating discharge services: Physical Exam Vital Signs: Vital Signs: Last Vital Signs Temp 98.7 F 03/06/20 10:59 Pulse 95 03/06/20 10:59 Resp 18 03/06/20 10:59 BP 115/61 03/06/20 10:59 Pulse Ox 97 03/06/20 10:59 Body Mass Index 29.2 Constitutional : Alert, oriented, looks mildly anxious Neck : Normal inspection, Supple Cardiovascular : RRR, S1 S2, no lower extremity edema Respiratory : Good bilateral air entry, no crackles, wheezes or rhonchi Gastrointestinal: soft, lax, Normal bowel sounds, Non tender Skin : Warm/Dry, No rash Neurological : Alert & oriented x2, No focal deficit DS: Data Data Completed and Pending Labs on day of discharge: 03/03/20 20:39 Basic Metabolic Panel Stat Complete Blood Count Auto Diff Stat Ethanol Stat Hold Lt Blue - Possible Coag Stat Liver Panel Stat Troponin-I High Sensitivity Stat 03/03/20 21:05 Glucose, Whole Blood Routine 03/03/20 21:12 CT head/brain wo con Stat 03/03/20 21:13 CT cervical spine wo con Stat 03/03/20 21:17 ECG 12 lead EKG Stat EKG Documentation DIRECTED 03/03/20 21:31 0.9 % Sodium Chloride [Ns] 1,000 ml IVCONT 999 mls/hr LORazepam [Ativan] 1 mg IVPUSH STAT STA 03/03/20 21:38 XR hip LT w PEL1V Stat 03/03/20 21:52 Ammonia Stat Drug Screen Urine Stat 03/03/20 22:24 LORazepam [Ativan] 2 mg IVPUSH ONCE STA 03/03/20 22:31 Urine Culture Routine 03/03/20 22:36 cefTRIAXone sodium [Rocephin] 1 gm 0.9 % Sodium Chloride [Ns] 50 ml IV ONCE 03/03/20 22:37 Add Laboratory Test Stat 03/03/20 22:54 cefTRIAXone sodium [Rocephin] 1 gm .ROUTE .STK-MED ONE 03/03/20 23:02 Lactic Acid Stat 03/03/20 23:32 0.9 % Sodium Chloride [Ns] 1,000 ml IVCONT Per Protocol mls/hr 03/03/20 23:39 Consult Rx EtOH Phenob Dosing 1 each MISCELLANE ONCE ONE 03/04/20 00:24 LORazepam [Ativan] 2 mg IVPUSH ONCE STA 03/04/20 00:30 PHENobarbitaL sodium 210 mg IM ONCE ONE 03/04/20 01:35 SARS COV2 PCR INHOUSE Stat ~Lactic Acid-LAB USE ONLY Stat 03/04/20 02:39 PHENobarbitaL sodium 150 mg IVPUSH ONCE STA 03/04/20 03:04 Acetaminophen Supp [Tylenol Supp] 650 mg ME ONCE STA 03/04/20 03:25 PHENobarbitaL sodium 150 mg IVPUSH ONCE ONE 03/04/20 03:30 PHENobarbitaL sodium 157 mg IM Q3H 03/04/20 04:05 PHENobarbitaL sodium 150 mg IVPUSH ONCE ONE 03/04/20 09:48 Enoxaparin Sodium [Lovenox] 40 mg SUBCUT Q24H 03/04/20 09:49 0.9 % Sodium Chloride [Ns] 1,000 ml IVCONT 100 mls/hr 03/04/20 10:10 cefTRIAXone sodium [Rocephin] 1 gm .ROUTE .STK-MED ONE 03/04/20 10:18 PHENobarbitaL sodium 75 mg IVPUSH ONCE ONE 03/04/20 12:00 Transfer Order Routine 03/04/20 14:00 PHENobarbitaL sodium 157 mg IM Q3H PHENobarbitaL sodium 157 mg IM Q3H 03/04/20 14:32 Transfer Order Routine 03/04/20 15:10 Heparin Sodium,Porcine 5,000 unit SUBCUT Q12H ondansetron HCL [Zofran] 4 mg IVPUSH Q8H PRN 03/04/20 Lunch Low Sodium Diet 03/04/20 21:00 PHENobarbitaL 45 mg PO BID 03/05/20 05:51 Basic Metabolic Panel DAILY@0600 Complete Blood Count Auto Diff DAILY@0600 Liver Panel DAILY@0600 03/05/20 11:01 cefTRIAXone sodium [Rocephin] 1 gm .ROUTE .STK-MED ONE 03/06/20 05:26 Basic Metabolic Panel DAILY@0600 Complete Blood Count no Diff DAILY@0600 Liver Panel Routine 03/06/20 09:21 cefTRIAXone sodium [Rocephin] 1 gm .ROUTE .STK-MED ONE Laboratory Last Values WBC 3.2 X10*3/uL (4.8-10.8) L 03/06/20 05:26 RBC 2.50 X10*6/uL (4.20-5.50) L 03/06/20 05:26 Hgb 8.2 g/dl (12.0-16.0) L 03/06/20 05:26 Hct 24.6 % (37-47) L 03/06/20 05:26 MCV 98.4 fL (80-98) H 03/06/20 05:26 MCH 32.8 pg (27.0-33.0) 03/06/20 05:26 MCHC 33.3 g/dl (31.0-35.0) 03/06/20 05:26 RDW 13.2 % (11.0-16.0) 03/06/20 05:26 Plt Count 115 X10*3/uL (160-400) L 03/06/20 05:26 MPV 10.0 fL (9.4-12.3) 03/06/20 05:26 Immature Gran % (Auto) 0.9 % (0.0-0.4) H 03/05/20 05:51 Neut % (Auto) 62.3 % (45-73) 03/05/20 05:51 Lymph % (Auto) 22.7 % (20-40) 03/05/20 05:51 [place] % (Auto) 13.2 % (2-11) H 03/05/20 05:51 Eos % (Auto) 0.6 % (0-4) 03/05/20 05:51 Baso % (Auto) 0.3 % (0-2) 03/05/20 05:51 Lymph # (Auto) 0.8 X10*3/uL (1.2-4.9) L 03/05/20 05:51 [place] # (Auto) 0.5 X10*3/uL (0.1-1.2) 03/05/20 05:51 Eos # (Auto) 0.0 X10*3/uL (0.0-0.4) 03/05/20 05:51 Baso # (Auto) 0.0 X10*3/uL (0.0-0.2) 03/05/20 05:51 Abs Immat Gran (auto) 0.03 X10*3/uL (0.00-0.03) 03/05/20 05:51 Absolute Neuts (auto) 2.2 X10*3/uL (2.0-8.3) 03/05/20 05:51 Absolute Nucleated RBC 0.000 X10*3/uL (0.0-0.012) 03/06/20 05:26 Nucleated RBC % (auto) 0.0 /100WBC (0.0-0.2) 03/06/20 05:26 Hold Blue Top SEE NOTE 03/03/20 20:39 Sodium 134 mmol/L (135-145) L 03/06/20 05:26 Potassium 3.1 mmol/l (3.3-5.1) L 03/06/20 05:26 Chloride 101 mmol/L (96-108) 03/06/20 05:26 Carbon Dioxide 22 mmol/L (22-29) 03/06/20 05:26 Anion Gap 14 (12-20) 03/06/20 05:26 BUN 13 mg/dL (9-16) 03/06/20 05:26 Creatinine 0.56 mg/dL (0.5-1.4) 03/06/20 05:26 Estim Creat Clear Calc 94.4 03/06/20 05:26 Estimated GFR > 60 03/06/20 05:26 POC Glucose 112 mg/dL (60-115) 03/03/20 21:05 Random Glucose 85 mg/dL (60-115) 03/06/20 05:26 Lactic Acid 2.3 mmol/L (0.5-2.0) H* 03/03/20 23:02 Lactic Acid Fup @ 2Hr 1.1 mmol/L (0.5-2.0) 03/04/20 01:35 Calcium 7.9 mg/dL (8.4-10.2) L 03/06/20 05:26 Total Bilirubin 1.5 mg/dL (0.0-1.0) H 03/06/20 05:26 Direct Bilirubin 1.5 mg/dL (0.0-0.5) H 03/06/20 05:26 AST 41 U/L (5-31) H 03/06/20 05:26 ALT 19 U/L (0-31) 03/06/20 05:26 Alkaline Phosphatase 197 U/L (39-117) H 03/06/20 05:26 Ammonia 36 umol/L (13-55) 03/03/20 21:52 Troponin I High Sens < 3.5 ng/L (<3.5-17.0) 03/03/20 20:39 Total Protein 5.9 g/dL (6.5-8.0) L 03/06/20 05:26 Albumin 2.7 g/dL (3.5-5.0) L 03/06/20 05:26 Urine Color FABIEN 03/03/20 21:52 Urine Appearance CLOUDY 03/03/20 21:52 Urine pH 6.5 (5.0-8.0) 03/03/20 21:52 Ur Specific [place] 1.025 (1.005-1.025) 03/03/20 21:52 Urine Protein 3+ MG/DL (NEG-TRACE) H 03/03/20 21:52 Urine Glucose (UA) NEG MG/DL (NEG) 03/03/20 21:52 Urine Ketones 15 MG/DL (NEG) 03/03/20 21:52 Urine Blood 3+ (NEG) H 03/03/20 21:52 Urine Nitrite POS (NEG) H 03/03/20 21:52 Ur Leukocyte Esterase 3+ (NEG) H 03/03/20 21:52 Urine RBC 30-49 /HPF (0) H 03/03/20 21:52 Urine WBC TNTC /HPF (0-4) H 03/03/20 21:52 Ur Squamous Epith Cells NONE /LPF 03/03/20 21:52 Urine Bacteria 4+ /LPF 03/03/20 21:52 Urine Opiates Screen Not Detected (Not Detect) 03/03/20 21:52 Ur Barbiturates Screen Not Detected (Not Detect) 03/03/20 21:52 Ur Phencyclidine Scrn Not Detected (Not Detect) 03/03/20 21:52 Ur Amphetamines Screen Not Detected (Not Detect) 03/03/20 21:52 U Benzodiazepines Scrn Not Detected (Not Detect) 03/03/20 21:52 Urine Cocaine Screen Not Detected (Not Detect) 03/03/20 21:52 U Marijuana (THC) Screen Not Detected (Not Detect) 03/03/20 21:52 Ethyl Alcohol < 10 mg/dL 03/03/20 20:39 Coronavirus (PCR) NEGATIVE (Negative) 03/04/20 01:35 Preliminary micro results at discharge 03/03/20 22:53 Blood Culture - Preliminary Blood - Venous Escherichia coli Discharge Plan Discharge Patient Disposition: er [facility] Referrals: [facility] [Outside] Physician,None [Primary Care Provider] - Discharge Medications: New folic acid 1 mg Tablet 1 mg PO DAILY Qty: 30 RF: 0 thiamine HCl (vitamin B1) 100 mg Tablet 100 mg PO DAILY Qty: 30 RF: 0 cefuroxime axetil 500 mg tablet 500 mg PO Q12H Qty: 24 RF: 0 Continued naproxen 500 mg tablet 500 mg PO BID PRN (Reason: pain) Qty: 20 RF: 0 Discharge Orders: Discharge Order (Routine); Ordered 03/06/20 Ordered By: Johnny Carlisle Diet: advance to your usual diet Activity on Discharge: As tolerated Discharge Date/Time: 03/06/20 14:11 Visit Report Forms: Patient Portal Discharge page Care Plan Goals: Read below Health Concerns: Read below Plan of Treatment: You were admitted to the hospital for evaluation of altered mental status and abnormal blood work. You were going through alcohol withdrawal requiring IV and oral phenobarbital treatment to control your symptoms. You were started on multivitamins as well. Your symptoms improved and your mental status improved to baseline. We advise you to quit drinking completely. Your liver enzymes were significantly elevated at time of presentation which continue to improved during the hospital stay. Your noted to have infection in the urine reaching the blood with bacteria called E coli which is sensitive to antibiotics. You will need to finish total of 2 weeks of antibiotics. Next Lyme continue Ceftin as prescribed Come back to the hospital for any fever, increased lethargy or weakness
--- NOTE | 2020-03-06 12:53 | MHC.CM.PN ---
pt is now agreeable to str sister present during discussion hcp filed rehab located at [facility] dc set for 2 :00 today by amb
== END 2020-03-06 14:11 | disposition skilled nursing facility (03) | DRG 872 ==
LOC: HO.ED 03-04 02:03 → HO.IMC 03-04 12:41
PROVIDERS: Nurse Practitioner Acute Care; Physician Assistant; Admitting Provider Student in an Organized Health Care Education/Training Program; Emergency Provider Emergency Medicine; Visit Provider Student in an Organized Health Care Education/Training Program
DX: A41.50 Gram-negative sepsis, unspecified (principal); F10.231 Alcohol dependence with withdrawal delirium; N39.0 Urinary tract infection, site not specified; R65.20 Severe sepsis without septic shock; Z20.828 Contact with and (suspected) exposure to other viral communicable diseases; D64.9 Anemia, unspecified; R74.01 Elevation of levels of liver transaminase levels; Z79.899 Other long term (current) drug therapy
CPT/HCPCS: 36415; 70450; 72125; 73502; 80048; 80076; 80307; 80320; 81001; 82140; 82947; 83605; 84484; 85025; 85027; 87040; 87077; 87086; 87088; 87186; 93005; 96361; 96365; 96372; 96375; 96376; 97162; 99284; 99285; J0696; J1650; J2060; J2560; U0003

== ENCOUNTER 2020-04-08 15:47 | Outpatient (REF) | payer MEDICARE, SELFPAY ==
--- NOTE | 2020-04-08 | US_ITS ---
EXAMINATION: US VENOUS ULTRASOUND WITH DOPPLER LOWER EXTREMITY, LEFT CLINICAL INFORMATION: Left lower extremity pain and swelling. COMPARISON: None TECHNIQUE: Ultrasound of the deep veins is performed from the hip to the calf with compression sonography and color and pulse Doppler assessment. Spectral analysis with color-flow imaging is performed. FINDINGS: There is normal venous compression and respiratory variation and augmented flow. The visualized common femoral vein, superficial femoral vein, profunda femoral vein, popliteal vein, and the trifurcation region shows no evidence of deep venous thrombosis. There is no significant popliteal fossa cyst. If the patient's symptoms persist, followup ultrasound in 5 days 7 days might be of value to exclude proximal propagation from a non-visualized calf vein. US/US venous duplex LE LT IMPRESSION: No DVT demonstrated in the left lower extremity.
== END 2020-04-08 15:48 | disposition home or self-care (01) ==
LOC: HO.HMGCX 15:47
PROVIDERS: PCP Internal Medicine; Visit Provider Internal Medicine
DX: M79.662 Pain in left lower leg (principal); M79.89 Other specified soft tissue disorders
CPT/HCPCS: 93971

== ENCOUNTER 2020-10-22 12:30 | Outpatient (REF) | payer MEDICARE, SELFPAY ==
--- NOTE | ~2020-10-22 | MM_ITS ---
EXAMINATION: BONE DENSITOMETRY CLINICAL INDICATION: Osteopenia. COMPARISON: This is the patient's baseline examination. TECHNIQUE: Using a [employer] DXA System (software version: 13.1) manufactured by [employer], dual-energy x-ray absorptiometry was performed of the lumbar spine and left hip. The images are of good technical quality. Summary results are attached. FINDINGS: AP SPINE L1-L3 (excluding L4): The data of L1-L4 has been changed to exclude the L4 vertebral body, because at this level may cause overestimation of lumbar spine density. BMD 0.945 g/cm2, Z-score -0.1, T-score -1.9, osteopenia. LEFT FEMUR, NECK: BMD 0.803 g/cm2, Z-score 0.0, T-score -1.7, osteopenia. LEFT FEMUR, TOTAL: BMD 0.807 g/cm2, Z-score -0.1, T-score -1.6, osteopenia. IDENTIFIED RISK FACTORS: Menopause, height loss. HISTORY OF FRACTURE: None listed. MEDICATIONS: None listed. MM/XR DEXA axial skeleton IMPRESSION: 1. DIAGNOSIS: Osteopenia based on the lowest T-score value of -1.9 in the lumbar spine applying World Health Organization criteria. 2. 10-YEAR FRACTURE RISK PREDICTION, FRAX: Major osteoporotic fracture (clinical spine, forearm, hip or shoulder) 10.3%. Hip fracture 1.5%. 3. Treatment Recommendations: NOF guidelines recommend consideration for treatment in postmenopausal women and men age 50 and older presenting with the following: -A hip or vertebral (clinical or morphometric) fracture. -T-score less than or equal to -2.5 at the femoral neck or spine after appropriate evaluation to exclude secondary causes. -Low bone mass at the hip or spine and a 10-year fracture probability by FRAX of greater than or equal to 3% for hip fracture or greater than or equal to 20% for major osteoporotic fracture based on the [place] adapted WHO algorithm. 4. Other Recommendations: All treatment decisions require clinical judgment and consideration of individual patient factors, including patient preferences, comorbidities, previous drug use, risk factors not captured in the FRAX model (e.g. frailty, falls, vitamin D deficiency, increased bone turnover, interval significant decline in bone density) and possible under or overestimation of fracture risk by FRAX. Additional medical evaluation for secondary cause of low bone mineral density may be appropriate. FUTURE SCAN RECOMMENDATION: People with diagnosed cases of osteoporosis or at high risk for fracture should have regular bone mineral density tests. For patients eligible for Medicare, routine testing is allowed once every 2 years. The testing frequency can be increased to one year for patients who have rapidly progressing disease, those who are receiving or discontinuing medical therapy to restore bone mass, or have additional risk factors.
--- NOTE | ~2020-10-22 | MM_ITS ---
EXAMINATION: MM SCREENING DIGITAL BREAST TOMOSYNTHESIS, BILATERAL CLINICAL INFORMATION: Screening. Asymptomatic. The lifetime risk of breast cancer based on the Tyrer-Cuzick Model is 3.4%. COMPARISON: Mammography: None. TECHNIQUE: Digital breast tomosynthesis is performed in both the craniocaudal and mediolateral oblique views along with computer-aided detection (CAD). Synthesized 2-D images are generated from the tomosynthesis. FINDINGS: The breasts are extremely dense, which lowers the sensitivity of mammography (ACR BI-RADS breast composition Category d). Breast tissue is very dense and nodular with numerous circumscribed densities present bilaterally. Ultrasound evaluation is recommended bilaterally. MM/MM tomosynthesis screening BI IMPRESSION: Very dense breast parenchyma with nodular densities which may be related to cysts or dilated ducts. Recommend bilateral breast ultrasound. ASSESSMENT: BI-RADS 0: Incomplete - Need Additional Imaging Evaluation. RECOMMENDATION: Bilateral breast ultrasound.
== END 2020-10-22 12:31 | disposition home or self-care (01) ==
LOC: HO.MAMMO 12:30
PROVIDERS: PCP Internal Medicine; Visit Provider Internal Medicine
DX: Z12.31 Encounter for screening mammogram for malignant neoplasm of breast (principal); Z13.820 Encounter for screening for osteoporosis; M81.8 Other osteoporosis without current pathological fracture; M85.80 Other specified disorders of bone density and structure, unspecified site; Z78.0 Asymptomatic menopausal state
CPT/HCPCS: 77063; 77067; 77080

== ENCOUNTER 2020-11-01 12:27 | Outpatient (REF) | payer MEDICARE, SELFPAY ==
--- NOTE | ~2020-11-01 | US_ITS ---
EXAMINATION: US DIAGNOSTIC ULTRASOUND BREAST, BILATERAL CLINICAL INFORMATION: Very dense nodular breast parenchyma within both breasts anteriorly.. COMPARISON: October 22, 2020. TECHNIQUE: Ultrasound of the breast is performed with real-time myers scale imaging and color Doppler. FINDINGS: There is no focal suspicious finding. There is no solid mass, architectural abnormality, duct ectasia, or edema in the soft tissue planes. Results are discussed with the patient at time of visit. US/US breast RT limited IMPRESSION: No specific ultrasound findings to suggest malignancy of either breast. ASSESSMENT: BI-RADS 1: Negative for ultrasound study. BI-RADS 3, probably benign for mammography. RECOMMENDATION: Diagnostic mammography in 6 months. This patient's information was entered into a reminder system with a target due date for their next mammogram.
--- NOTE | ~2020-11-01 | US_ITS ---
EXAMINATION: US DIAGNOSTIC ULTRASOUND BREAST, BILATERAL CLINICAL INFORMATION: Very dense nodular breast parenchyma within both breasts anteriorly.. COMPARISON: October 22, 2020. TECHNIQUE: Ultrasound of the breast is performed with real-time myers scale imaging and color Doppler. FINDINGS: There is no focal suspicious finding. There is no solid mass, architectural abnormality, duct ectasia, or edema in the soft tissue planes. Results are discussed with the patient at time of visit. US/US breast LT limited IMPRESSION: No specific ultrasound findings to suggest malignancy of either breast. ASSESSMENT: BI-RADS 1: Negative for ultrasound study. BI-RADS 3, probably benign for mammography. RECOMMENDATION: Diagnostic mammography in 6 months. This patient's information was entered into a reminder system with a target due date for their next mammogram.
== END 2020-11-01 12:28 | disposition home or self-care (01) ==
LOC: HO.MAMMO 12:27
PROVIDERS: Visit Provider Internal Medicine
DX: R92.2 Inconclusive mammogram (principal)
CPT/HCPCS: 76642

== ENCOUNTER 2021-05-07 10:53 | Emergency (ER) | payer OTHER, SELFPAY ==
--- NOTE | ~2021-05-07 | CT_ITS ---
EXAMINATION: CT HEAD WITHOUT CONTRAST CLINICAL INFORMATION: Trauma. COMPARISON: CT brain 03/03/2020 TECHNIQUE: Contiguous axial imaging was performed from the skull base to vertex without intravenous administration of contrast. This CT examination was performed using dose optimization techniques as appropriate, variously including the following: *Automated exposure control *Adjustment of mA and/or kV according to patient size (this includes techniques or standardized protocols for targeted exams where dose is matched to indication/reason for exam; i.e. extremities or head) *Use of iterative reconstruction technique DLP: 904 mGy-cm FINDINGS: No acute intra-axial, extra-axial bleed, masses, collection or midline shift. There is no subtle old infarction left posterior limb internal capsule extending to the cerebral ikp region while left midbrain. It is faintly visualized compared to previous study. There is no acute infarction evolution at this time. The myers to white matter difference is maintained normal. The lateral ventricles are symmetrical in size but enlarged. There is mild prominence of cortical sulci. Bone windows reveal left left frontal scalp hematoma without calvarial fracture. There is normal aeration of bilateral paranasal sinuses and mastoid air cells. There is minimal to moderate wax seen in the left external auditory canal. CT/CT head/brain wo con IMPRESSION: Moderate left frontal scalp hematoma without calvarial fracture. No acute intracranial process seen.
[2021-05-07 11:29] VITALS: BP 141/117; BP 160/90; PULSE 100; PULSE 93; TEMP 35.9; O2SAT 100; O2SAT 99; BMI 24.7
--- NOTE | 2021-05-07 11:42 | ED.FALL ---
HPI - Fall General Chief Complaint: Fall Stated Complaint: FALL W/L EYE LAC,-THINNERS,-LOC,+ETOH USE Time Seen by Provider: 05/07/21 11:36 Source: patient History of Present Illness HPI Narrative: Patient with a trip and fall prior to arrival. Positive EtOH today. She states she lost balance and tripped and fell and hit her left eyebrow and periorbital area on the ground. She denies any upper or lower extremity injuries. No neck back chest or abdominal pain. No recent illnesses. She states she is up-to-date on her tetanus. She complains of abrasion and swelling to the area of impact No weakness numbness paresthesias or headache Related Data Previous Rx's Medication Instructions Recorded naproxen 500 mg tablet 500 mg PO BID PRN #20 tab 02/27/20 cefuroxime axetil 500 mg tablet 500 mg PO Q12H #24 tab 03/06/20 folic acid 1 mg tablet 1 mg PO DAILY #30 tab 03/06/20 thiamine HCl (vitamin B1) 100 mg 100 mg PO DAILY #30 tab 03/06/20 tablet bacitracin zinc 500 unit/gram 1 appl TOPICAL BID #14 g 05/07/21 topical ointment (Antibiotic (bacitracin zinc)) Allergies Allergy/AdvReac Type Severity Reaction Status Date / Time No Known Allergies Allergy Verified 02/27/20 18:06 Review of Systems Constitutional: Comments: No recent illness. ENT: Comments: Contusion, hematoma, abrasion left periorbital area Cardiovascular: Comments: No chest pain or palpitation Respiratory: Comments: No cough or dyspnea Gastrointestinal: Comments: No abdominal Musculoskeletal: Comments: No extremity injury. No neck back pain Integumentary/Breasts: Comments: Abrasion Neurologic: Comments: No focal weakness numbness or paresthesias [facility] Past Medical History Medical History (Updated 05/07/21 @ 12:53 by Grzegorz Multani MD) Alcohol abuse No known health problems Transaminitis Social History Social History (Updated 03/04/20 @ 13:37 by Coretta Diego NP) Household Members: Family Housing: House Do you presently have visiting nurse or other home services: No Alcohol intake: former Advance Directives: No Advance Directives Information Provided: No service: No Physical Exam Vital Signs: Vital Signs: Last Vital Signs Temp 96.6 F L 05/07/21 11:29 Pulse 115 H 05/07/21 12:25 Resp 15 05/07/21 12:25 BP 108/81 05/07/21 12:25 Pulse Ox 99 05/07/21 12:25 BMI result Body Mass Index 24.7 HENMT: Other: Abrasion left superior periorbital and eyebrow region. Small cut inferior to the eyebrow, superficial, well-approximated, no sutures needed. No active bleeding. Ecchymosis and swelling surrounding abrasion. No crepitus noted Eyes: Other: Pupils equal round reactive to light. Extraocular muscles intact. No diplopia. Vision is intact. Neck: Other: Nontender full range of motion Chest: Other: Midthoracic pain or tenderness Resp: Other: Clear but diminished bilaterally Cardio: Other: Hypertensive. Mildly tachycardic. GI: Other: Soft nontender Back/Spine/Pelvis: Other: Nontender Skin: Other: Abrasion and cut as noted Neuro: Other: Nonfocal. Course Course Course Narrative: Abrasion without significant laceration. Rule out intracranial hemorrhage Rule out frontal or orbital fracture No evidence of syncope or dysrhythmia 12:[address] scan shows no intracranial hemorrhage or calvarial fracture. Large hematoma as noted clinically. Sutures not needed. Will discharge home with a final diagnosis of facial hematoma. Facial abrasion. Discharge Plan Discharge Clinical Impression: Hematoma, Abrasion Patient Disposition: Home, Self-Care Instructions: Abrasion (ED), Hematoma (ED) Additional Instructions: Your CT scan today showed no evidence of fracture or bleeding in your brain. He use antibiotic ointment twice daily for the next 10 days. Return if worse Prescriptions: New bacitracin zinc [Antibiotic (bacitracin zinc)] 500 unit/gram ointment 1 appl topical BID Qty: 14 RF: 0 No Action naproxen 500 mg tablet 500 mg PO BID PRN (Reason: pain) Qty: 20 RF: 0 folic acid 1 mg Tablet 1 mg PO DAILY Qty: 30 RF: 0 thiamine HCl (vitamin B1) 100 mg Tablet 100 mg PO DAILY Qty: 30 RF: 0 cefuroxime axetil 500 mg tablet 500 mg PO Q12H Qty: 24 RF: 0
[2021-05-07 12:25] VITALS: BP 108/81; PULSE 115; RESP 15; O2SAT 99
--- NOTE | 2021-05-07 13:00 | PC.NURSE ---
pt' sister manda was called to pick pt up in [facility] waiting room.
== END 2021-05-07 13:30 | disposition home or self-care (01) ==
PROVIDERS: Emergency Provider Emergency Medicine; PCP Internal Medicine
DX: S00.212A Abrasion of left eyelid and periocular area, initial encounter (principal); S00.12XA Contusion of left eyelid and periocular area, initial encounter; W01.198A Fall on same level from slipping, tripping and stumbling with subsequent striking against other object, initial encounter; F10.10 Alcohol abuse, uncomplicated; Y90.9 Presence of alcohol in blood, level not specified; Y93.01 Activity, walking, marching and hiking; Y92.9 Unspecified place or not applicable; Y99.9 Unspecified external cause status
CPT/HCPCS: 70450; 99284

== ENCOUNTER 2021-05-22 11:47 | Emergency (ER) | payer OTHER, SELFPAY ==
--- NOTE | ~2021-05-22 | CT_ITS ---
EXAMINATION: CT FACIAL BONES WITHOUT CONTRAST CLINICAL INFORMATION: Fall COMPARISON: None TECHNIQUE: Axial images through the facial bones without contrast. Sagittal and coronal reconstructions on the technologist workstation were performed. This CT examination was performed using dose optimization techniques as appropriate, variously including the following: *Automated exposure control *Adjustment of mA and/or kV according to patient size (this includes techniques or standardized protocols for targeted exams where dose is matched to indication/reason for exam; i.e. extremities or head) *Use of iterative reconstruction technique DLP: 225 mGy-cm FINDINGS: There are bilateral nondisplaced nasal bone fractures. No other fracture is seen. There is high attenuation preseptal soft tissue swelling/hematoma over the left superior lateral orbit and left frontal bone. Post septal orbital soft tissues are normal. The paranasal sinuses mastoid air cells and middle ears are clear. The nasal septum is deviated to the right. The ostiomeatal complexes are patent. The temporomandibular joints are normal. There are small bilateral cervical lymph nodes. No enlarged lymph nodes are seen. CT/CT facial bones wo con IMPRESSION: Bilateral nondisplaced nasal bone fractures. High attenuation preseptal soft tissue swelling over the left superior lateral orbit and frontal bone/hematoma.
--- NOTE | ~2021-05-22 | CT_ITS ---
EXAMINATION: CT HEAD WITHOUT CONTRAST CLINICAL INFORMATION: Fall. Left frontal hematoma. COMPARISON: Previous head CT most recent April 2021 TECHNIQUE: Contiguous axial imaging was performed from the skull base to vertex without intravenous administration of contrast. This CT examination was performed using dose optimization techniques as appropriate, variously including the following: *Automated exposure control *Adjustment of mA and/or kV according to patient size (this includes techniques or standardized protocols for targeted exams where dose is matched to indication/reason for exam; i.e. extremities or head) *Use of iterative reconstruction technique DLP: 595 mGy-cm FINDINGS: There is no evidence of an extra-axial collection. There is no evidence of intra-axial or extra-axial hemorrhage. The ventricles and extra-axial CSF spaces are prominent suggestive of generalized atrophy. There is nonspecific periventricular white matter disease. No mass, mass effect or infarct is seen. Review of bone windows is normal. No skull fracture is seen. There is a large left scalp hematoma overlying the left frontal bone and left superior lateral orbit. Post orbital soft tissues are normal. Paranasal sinuses, mastoid air cells and middle ears are clear. CT/CT head/brain wo con IMPRESSION: No acute findings. Enlarged left scalp hematoma overlying the left frontal bone and superior lateral left orbit.
--- NOTE | ~2021-05-22 | CT_ITS ---
EXAMINATION: CT CERVICAL SPINE WITHOUT CONTRAST CLINICAL INFORMATION: Fall COMPARISON: Previous x-ray CT scan February 2020 TECHNIQUE: Axial images through the cervical spine without contrast. Sagittal and coronal reconstructed images on the technologist workstation were performed. This CT examination was performed using dose optimization techniques as appropriate, variously including the following: *Automated exposure control *Adjustment of mA and/or kV according to patient size (this includes techniques or standardized protocols for targeted exams where dose is matched to indication/reason for exam; i.e. extremities or head) *Use of iterative reconstruction technique DLP: 495 mGy-cm FINDINGS: Bone alignment is normal. No fracture or dislocation is seen. There is degenerative spondylosis and degenerative disc disease from C3-C4 to C6-C7. Prevertebral soft tissues are normal. There is bilateral carotid calcification. Visualized lung apices are clear. CT/CT cervical spine wo con IMPRESSION: Degenerative changes. No fracture is seen. Fleischner guidelines were followed.
[2021-05-22 11:59] VITALS: BP 154/82; PULSE 91; RESP 17; TEMP 36.5; O2SAT 98; BMI 25.6
[2021-05-22 12:02] VITALS: BP 160/88; PULSE 60; O2SAT 97
--- NOTE | 2021-05-22 12:10 | ED_ITS ---
HPI - General Adult General Chief complaint: Fall Stated complaint: MECH FALL,+COLLAR,-LOC,-THINNERS,LAC ABOVE LT EYE Time Seen by Provider: 05/22/21 12:05 Source: EMS Mode of arrival: ambulatory Limitations: no limitations History of Present Illness HPI narrative: 70-year-old female presents to the ED for fall. Patient brought in by EMS. As per EMS patient was drinking and police came on the scene and then patient fell onto the ground. Patient herself denies drinking alcohol but alcohol can be smelled on breath. Patient denies being on any blood thinners. Related Data Previous Rx's Medication Instructions Recorded naproxen 500 mg tablet 500 mg PO BID PRN #20 tab 02/27/20 cefuroxime axetil 500 mg tablet 500 mg PO Q12H #24 tab 03/06/20 folic acid 1 mg tablet 1 mg PO DAILY #30 tab 03/06/20 thiamine HCl (vitamin B1) 100 mg 100 mg PO DAILY #30 tab 03/06/20 tablet bacitracin zinc 500 unit/gram 1 appl TOPICAL BID #14 g 05/07/21 topical ointment (Antibiotic (bacitracin zinc)) amoxicillin 875 mg-potassium 1 tab PO Q12H 7 Days #14 tab 05/22/21 clavulanate 125 mg tablet (Augmentin) Allergies Allergy/AdvReac Type Severity Reaction Status Date / Time No Known Allergies Allergy Verified 02/27/20 18:06 Review of Systems Verdana 4l Review of Systems: Verdana 4d Fall. Drink Verdana 4d alcohol Verdana 4d Yes all other systems are reviewed and are negative Verdana 4l Constitutional: Verdana 4d Constitutional: Verdana 4d Verdana 4d Reports as per HPI and Reports no additional constitutional complaints [facility] Past Medical History Medical History (Updated 05/22/21 @ 14:42 by RASHID Hearn) Alcohol abuse No known health problems Transaminitis Social History Social History (Updated 03/04/20 @ 13:37 by Coretta Diego NP) Household Members: Family Housing: House Do you presently have visiting nurse or other home services: No Alcohol intake: current Alcohol intake frequency: a few times a week Alcohol type: wine and hard liquor Patient Tobacco Use Status: Never used Tobacco Advance Directives: Yes Advance Directives on File: Yes Advance Directives Date on File: 03/07/20 service: No Physical Exam Verdana 4l Vital Signs: Verdana 4d Verdana 4d Vital Signs: Verdana 4d Verdana 4Bd Last Vital Signs Verdana 4d 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 Positive for frontal ecchymotic hematoma. 2. Abrasion with dry blood. Ears: hearing grossly normal bilaterally, external ears normal and TM's normal bilaterally Nose image: 1. Positive for dry blood. Eyes: General: appearance normal, both eyes and all related structures Neck: Neck: Yes normal visual inspection, Yes full ROM, Yes no lymphadenopathy, Yes no meningeal signs, Yes trachea midline, Yes supple, No anterior neck swelling and No tender Chest: Chest palpation & inspection: normal inspection of the chest and normal palpation of entire chest wall Resp: Effort & Inspection: normal respiratory effort and able to speak in complete sentences Auscultation: clear to auscultation bilaterally Cardio: Jugular venous distension: no JVD Heart sounds: S1 normal heart sound present and S2 normal heart sound present GI: Inspection: Yes normal to inspection and No abdominal wall ecchymosis Palpation (GI): Soft to palpation, not firm, nontender, no guarding and not rigid : General: No CVA tenderness and Yes no CVA tenderness Back/Spine/Pelvis: Back: no CVA tenderness, No CVA tenderness and No back tenderness Skin: General skin exam: no rashes or lesions noted and elasticity normal Neuro: General: patient oriented x3, gait normal, no meningeal signs, no focal motor deficits and CN's II-XI intact bilaterally Extrem: General: Yes normal to inspection and Yes full ROM Psych: Appearance: grossly normal, well kempt and not disheveled Course Course Course Narrative: Patient sent for head, CT scan, and facial CT for fall. Reevaluation(s) Reevaluation #1: Patient eloped from the ER before results to come back. Patient needs antibiotics. Went to the waiting room. patient could not be found. Patient initially tried to elope because she has family members waiting outside , but I returned her to the bed and convinved her to wait for results. Later during ED visit patient was not at bedside. Patient's cell phone number was called and sister machine pecan picker the phone. Sister passed phone to patient and patient was a info mred of nasal fracture reading on CT scan. Patient also was informed that antibiotics was sent to pharmacy. Sister states she picked up patient from the ER. Time: 13:57 Medical Decision Making MDM Narrative Medical decision making narrative: Nasal fracture. Hematoma Discharge Plan Discharge Clinical Impression: Fracture of nasal bone Patient Disposition: Elopement Prescriptions: New amoxicillin-pot clavulanate [Augmentin] 875-125 mg tablet 1 tab PO Q12H 7 Days Qty: 14 0RF No Action naproxen 500 mg tablet 500 mg PO BID PRN (Reason: pain) Qty: 20 0RF folic acid 1 mg Tablet 1 mg PO DAILY Qty: 30 0RF thiamine HCl (vitamin B1) 100 mg Tablet 100 mg PO DAILY Qty: 30 0RF cefuroxime axetil 500 mg tablet 500 mg PO Q12H Qty: 24 0RF bacitracin zinc [Antibiotic (bacitracin zinc)] 500 unit/gram ointment 1 appl topical BID Qty: 14 0RF Discharge Date/Time: 05/22/21 13:59
--- NOTE | 2021-05-22 12:42 | PC.NURSE ---
PT AMBULATED TO BATHROOM, ASKED FOR FACECLOTH TO WASH BLOOD OFF HER FACE. PT WITH STEADY GAIT,
[2021-05-22] MEDS: Diphth,Pertus(ACell),Tet Adult 0.5 ML SYRINGE IM (12:44)
--- NOTE | 2021-05-22 13:44 | PC.NURSE ---
PT REDIRECTED TO [facility] [place] [facility] FROM THE WAITING ROOM SEVERAL TIMES. PT INFORMED SHE SHOULD WAIT IN EM FOR HER RESULTS AND THAT WE WANT TO RULE OUT A HEAD BLEED. PT DID COME BACK TO ROOM ON SEVERAL OCCASIONS AND THEN STATED HER SISTER WAS PICKING HER UP AND SHE COULD NOT WAIT. PA INFORMED PT INTENDED TO LEAVE. PT ENCOURAGED TO STAY.
== END 2021-05-22 13:59 | disposition left against medical advice (07) ==
PROVIDERS: Emergency Provider Emergency Medicine Emergency Medical Services; PCP Internal Medicine
DX: S02.2XXA Fracture of nasal bones, initial encounter for closed fracture (principal); W19.XXXA Unspecified fall, initial encounter; F10.10 Alcohol abuse, uncomplicated; Y93.9 Activity, unspecified; Y92.480 Sidewalk as the place of occurrence of the external cause; Y99.9 Unspecified external cause status
CPT/HCPCS: 70450; 70486; 72125; 90471; 90715; 99283; 99284

== ENCOUNTER 2021-11-14 10:52 | Outpatient (REF) | payer OTHER, SELFPAY ==
--- NOTE | ~2021-11-14 | MM_ITS ---
EXAMINATION: MM DIAGNOSTIC DIGITAL BREAST TOMOSYNTHESIS, BILATERAL CLINICAL INFORMATION: Follow-up bilateral nodular densities/parenchyma The lifetime risk of breast cancer based on the Tyrer-Cuzick Model is 3.6%. COMPARISON: Mammography: Ultrasound of November 01, 2020 and mammography of October 22, 2020 TECHNIQUE: Digital breast tomosynthesis is performed in both the craniocaudal and mediolateral oblique views along with computer-aided detection (CAD). Synthesized 2D images are generated from the tomosynthesis. FINDINGS: The breasts are extremely dense, which lowers the sensitivity of mammography (ACR BI-RADS breast composition Category d). There are no significant masses, abnormal calcifications, or other abnormalities. Results are provided to the patient at time of visit by the technologist. MM/MM tomosynthesis diagnostic BI IMPRESSION: There are no significant changes from prior study. ASSESSMENT: BI-RADS 1: Negative RECOMMENDATION: Routine annual mammography screening due in 12 months. This patient's information was entered into a reminder system with a target due date for their next mammogram.
== END 2021-11-14 10:53 | disposition home or self-care (01) ==
LOC: HO.MAMMO 10:52
PROVIDERS: PCP Internal Medicine; Visit Provider Internal Medicine
DX: R92.2 Inconclusive mammogram (principal)
CPT/HCPCS: 77062; 77066

== ENCOUNTER 2023-03-29 10:52 | Outpatient (REF) | payer MEDICARE, SELFPAY | END 2023-03-29 10:53 | disposition home or self-care (01) | LOC: HO.MAMMO 10:52 | PROVIDERS: PCP Internal Medicine; Visit Provider Internal Medicine | DX: Z13.89 Encounter for screening for other disorder (principal) ==